=== PATIENT | female | born 1960 | race Caucasian/White ===

== ENCOUNTER → 2019-09-24 15:13 | Outpatient (CLI) | payer OTHER, SELFPAY ==
--- NOTE | ~2019-09-24 | MM_ITS ---
EXAMINATION: MM screening [facility] BI w ivy HISTORY: Screening mammogram TECHNIQUE: Craniocaudal and mediolateral oblique 3-D tomosynthesis images were obtained and synthetic 2-D images were generated. CAD analysis was submitted and interpreted. COMPARISON: 05/05/2018, 04/29/2017, 03/12/2016 BREAST PARENCHYMAL COMPOSITION: The breasts are heterogeneously dense, which may obscure small masses . FINDINGS: There is no evidence of suspicious mass, calcification, or architectural distortion to sugg est malignancy in either breast. There has been no suspicious interval change. IMPRESSION: 1. No mammographic evidence of malignancy. 2. Recommend routine screening mammography in one year. BI-RADS Category 1: Negative Reviewed, dictated and finalized at location A.
== END ==
PROVIDERS: PCP Family Medicine; Visit Provider Family Medicine
DX: Z12.31 Encounter for screening mammogram for malignant neoplasm of breast (principal)
CPT/HCPCS: 77063; 77067

== ENCOUNTER → 2020-11-03 18:07 | Outpatient (CLI) | payer OTHER, SELFPAY ==
--- NOTE | ~2020-11-03 | DEXA_ITS ---
Bone Density Report Name: Bhumika Jurado Age: 60 Sex: Female Ethnicity: White Date of : 1960 Indication: postmenopausal osteoporosis; Referring Provider: Qiana Cano Study: Bone densitometry was performed. Exam Date: November 03, 2020 Accession number: [id number] Bone Density: Region BMD T-score Z-score Classification AP Spine (L1-L4) 0.793 -2.3 -0.8 Osteopenia Femoral Neck (Left) 0.531 -2.9 -1.5 Osteoporosis Total Hip (Left) 0.644 -2.4 -1.4 Osteopenia Femoral Neck (Right) 0.539 -2.8 -1.4 Osteoporosis Total Hip (Right) 0.652 -2.4 -1.3 Osteopenia Total Hip Mean 0.648 -2.4 -1.4 Osteopenia World Health Organization criteria for BMD impression classify patients as: Normal (T-score at or above -1.0), Osteopenia (T-score between -1.0 and -2.5), or Osteoporosis (T-score at or below -2.5). 10-year Fracture Risk: FRAX not reported because: Some T-score for Spine Total or Hip Total or Femoral Neck at or below -2.5 Previous Exams: Region Exam Age BMD T-score BMD Change BMD Change Date g/cm2 vs Baseline vs Previous AP Spine(L1-L4) 11/03/2020 60 0.793 -2.3 -0.119* -0.020 03/12/2016 55 0.813 -2.1 -0.099* -0.015 03/01/2014 53 0.828 -2.0 -0.084* -0.066* 12/07/2010 50 0.894 -1.4 -0.017 -0.017 12/01/2009 49 0.912 -1.2 Total Hip(Left) 11/03/2020 60 0.644 -2.4 -0.028* 0.035* 03/12/2016 55 0.608 -2.7 -0.064* -0.065* 03/01/2014 53 0.673 -2.2 0.001 -0.009 12/07/2010 50 0.682 -2.1 0.011 0.011 12/01/2009 49 0.672 -2.2 Total Hip(Right) 11/03/2020 60 0.652 -2.4 -0.038* 0.001 03/12/2016 55 0.651 -2.4 -0.038* -0.027 03/01/2014 53 0.678 -2.2 -0.011 0.008 12/07/2010 50 0.670 -2.2 -0.020 -0.020 12/01/2009 49 0.689 -2.1 *Denotes significance at 95% confidence level, LSC for AP Spine = 0.022 g/cm2, LSC for Total Hip = 0.027 g/cm2 Clinical Information Provided by Patient: Has used the following medications: Vitamin D, Calcium, MTV Patient maximum height was 62.5 Menopause Age: 50 Drinks caffeinated beverages Onset of menses at age 12 Number of children 2 Impression: The patient has osteoporosis, based on the Left Femoral Neck T-score. No significant bone loss was observed. Discussion:
== END ==
PROVIDERS: PCP Family Medicine; Visit Provider Advanced Practice Midwife
DX: Z78.0 Asymptomatic menopausal state (principal); M85.88 Other specified disorders of bone density and structure, other site; M81.0 Age-related osteoporosis without current pathological fracture; M85.852 Other specified disorders of bone density and structure, left thigh; M85.851 Other specified disorders of bone density and structure, right thigh
CPT/HCPCS: 77080

== ENCOUNTER → 2020-11-21 17:48 | Outpatient (CLI) | payer OTHER, SELFPAY ==
--- NOTE | ~2020-11-21 | MM_ITS ---
EXAMINATION: MM screening [facility] BI w ivy HISTORY: Screening mammogram TECHNIQUE: Craniocaudal and mediolateral oblique 3-D tomosynthesis images were obtained and synthetic 2-D images were generated. Bilateral rotated lateral cc views. CAD analysis was submitted and interp reted. COMPARISON: 09/24/2019, , bilateral digital screening mammogram examinations BREAST PARENCHYMAL COMPOSITION: The breasts are heterogeneously dense, which may obscure small masses . FINDINGS: There is no evidence of suspicious mass, calcification, or architectural distortion to sugg est malignancy in either breast. There has been no suspicious interval change. IMPRESSION: 1. No mammographic evidence of malignancy. 2. Recommend routine screening mammography in one year. BI-RADS Category 1: Negative Reviewed, dictated and finalized at location A.
== END ==
PROVIDERS: PCP Family Medicine; Visit Provider Advanced Practice Midwife
DX: Z12.31 Encounter for screening mammogram for malignant neoplasm of breast (principal)
CPT/HCPCS: 77063; 77067

== ENCOUNTER → 2021-12-17 15:01 | Outpatient (CLI) | payer OTHER, SELFPAY ==
--- NOTE | ~2021-12-17 | MM_ITS ---
EXAMINATION: MM screening [facility] BI w ivy HISTORY: Screening mammogram TECHNIQUE: Craniocaudal and mediolateral oblique 3-D tomosynthesis images were obtained and synthetic 2-D images were generated. CAD analysis was submitted and interpreted. COMPARISON: 11/21/2020, 09/24/2019, 05/05/2018 BREAST PARENCHYMAL COMPOSITION: The breasts are heterogeneously dense, which may obscure small masses . FINDINGS: There is no suspicious mass, calcification, or architectural distortion to suggest malignan cy in either breast. There has been no suspicious interval change. IMPRESSION: 1. No mammographic evidence of malignancy. 2. Recommend routine screening mammography in one year. BI-RADS Category 1: Negative Reviewed, dictated and finalized at location A.
== END ==
PROVIDERS: PCP Family Medicine; Visit Provider Nurse Practitioner
DX: Z12.31 Encounter for screening mammogram for malignant neoplasm of breast (principal)
CPT/HCPCS: 77063; 77067

== ENCOUNTER 2022-05-25 14:13 | Emergency (ER) | payer OTHER, SELFPAY ==
--- NOTE | 2022-05-25 14:23 | ED.URI ---
HPI - URI/Sore Throat General Chief Complaint: Upper Respiratory Infection Stated Complaint: sore throat/ear pain Time Seen by Provider: 05/25/22 14:23 Source: patient Mode of arrival: ambulatory Limitations: no limitations History of Present Illness HPI Narrative: 61-year-old female presents with complaint of postnasal drainage, sore throat, bilateral ear pain for 1 week. Reports ears are popping, muffled hearing. Is taking Zyrtec and Flonase. States she is taking Tylenol to treat sore throat and is no longer helping. Also reports body aches, fatigue. Afebrile. No coughing. All systems reviewed and negative except as noted above. Related Data Home Medications Medication Instructions Recorded Confirmed ibandronate 150 mg tablet (Boniva) 150 mg PO MONTHLY 12/05/21 05/25/22 Allergies Allergy/AdvReac Type Severity Reaction Status Date / Time amoxicillin AdvReac Intermediate Diarrhea Verified 05/25/22 14:36 Review of Systems Review of Systems: CONSTITUTIONAL: Denies fever, chills, or sweats. EYES: Denies visual changes, redness, or discharge. ENT: Denies rhinorrhea, congestio. Reports sore throat and bilateral ear pain. CARDIOVASCULAR: Denies chest pain, palpitations, or edema. RESPIRATORY: Denies cough or dyspnea. GASTROINTESTINAL: Denies abdominal pain, nausea, vomiting, or diarrhea. GENITOURINARY: Denies dysuria or hematuria. SKIN: Denies rash or itching. MUSCULOSKELETAL: Denies back pain, joint pain, or myalgia. NEUROLOGIC: Denies headache, numbness, or weakness. PSYCHIATRIC: Denies anxiety or depression. All other systems reviewed are negative, except as documented in HPI. [facility] Past Medical History Medical History (Updated 05/25/22 @ 14:47 by Lucila Acosta NP) BCC (basal cell carcinoma of skin) Osteoporosis Family History Family History Father Hypertension Family history of diabetes mellitus in first degree relative Mother Family history of diabetes mellitus in first degree relative Sibling Family history of diabetes mellitus in first degree relative Social History Social History Social History: Smoking status: Never smoker Second hand tobacco smoke exposure: No Alcohol intake: never Substance use: never Substance use type: does not use Living arrangements: with family Occupation/Education: occupation Gender identity (if verbalized by the patient): Female Sexual Orientation (if Verbalized by the Patient): Straight or Heterosexual Comments At time of signature, agree with nursing past medical, surgical, social and family history. There is no relevant family history pertinent to the presenting complaint. Exam Narrative: GENERAL: This is a well-nourished, well-developed patient, in no apparent distress. HEAD: normocephalic, atraumatic. EYES: PERRL. Sclera clear/white. Vision is grossly intact. EARS: External ears normal, auditory canals clear and without drainage, Fluid, bubbles, erythema, bulging to bilateral TMs. No perforation. NOSE: External nose normal with no obvious nasal discharge, nares without redness, no rhinorrhea. THROAT: Mucous membranes moist, Erythema with postnasal drainage. NECK: Neck supple, non-tender without lymphadenopathy, masses or thyromegaly. CARDIOVASCULAR: Regular rate and rhythm without murmurs, gallops, or rubs. RESPIRATORY: Clear to auscultation. Breath sounds equal bilaterally. No wheezes, rales, or rhonchi. SKIN: warm, Dry, intact with no suspicious lesions or rash, good texture and turgor. NEURO: awake, alert, and oriented to person, place and time. There were no obvious focal neurologic abnormalities. EXTREMITIES: No joint tenderness, effusion, or edema noted. Course Course Level of Care: Express Care Visit Vital Signs Vital signs: Vital Signs Temperature 37.0 C 05/25/22 14:25 Pulse Rate 97
[2022-05-25 14:25] VITALS: BP 153/65; PULSE 97; RESP 16; TEMP 37; O2SAT 99
== END 2022-05-25 14:54 | disposition home or self-care (01) ==
PROVIDERS: Emergency Provider Nurse Practitioner Family; PCP Family Medicine
DX: H65.03 Acute serous otitis media, bilateral (principal); J02.9 Acute pharyngitis, unspecified; Z85.828 Personal history of other malignant neoplasm of skin; M81.0 Age-related osteoporosis without current pathological fracture
CPT/HCPCS: 87081; 87880; 99213; 99214; G0463

== ENCOUNTER 2023-01-14 07:43 | Outpatient (CLI) | payer BC, OTHER, SELFPAY ==
--- NOTE | ~2023-01-14 | NM_ITS ---
EXAMINATION: NM thyroid scan w uptake DATE: 01/15/2023 08:24 INDICATION: Thyrotoxicosis, unspecified without thyrotoxic crisis. COMPARISON: None. TECHNIQUE: 0.493 mCi I-123 was administered orally. Scintigraphic images of the thyroid gland were o btained at 24 hours. Thyroid uptake was calculated by the technologist. FINDINGS: The thyroid uptake is 18% (normal 10-30%), with the right lobe measuring 12% uptake and the left 6%. There is heterogeneous activity of the thyroid. IMPRESSION: 1. Normal 24-hour iodine uptake. 2. Heterogeneous thyroid activity, likely a multinodular goiter. Reviewed, dictated and finalized at location E.
== END 2023-01-14 07:44 | disposition home or self-care (01) ==
PROVIDERS: PCP Family Medicine; Visit Provider Family Medicine
DX: E05.90 Thyrotoxicosis, unspecified without thyrotoxic crisis or storm (principal)
CPT/HCPCS: 78014; A9516

== ENCOUNTER 2023-02-05 12:12 | Outpatient (CLI) | payer BC, SELFPAY ==
--- NOTE | ~2023-02-05 | MM_ITS ---
EXAMINATION: MM screening [facility] BI w ivy HISTORY: Screening mammogram TECHNIQUE: Craniocaudal and mediolateral oblique 3-D tomosynthesis images were obtained and synthetic 2-D images were generated. Bilateral rotated lateral CC views. CAD analysis was submitted and interp reted. COMPARISON: 12/17/2021, 11/21/2020, 09/24/2019 bilateral screening mammogram examinations BREAST PARENCHYMAL COMPOSITION: The breasts are heterogeneously dense, which may obscure small masses . FINDINGS: There is no evidence of suspicious mass, calcification, or architectural distortion to sugg est malignancy in either breast. There has been no suspicious interval change. IMPRESSION: 1. No mammographic evidence of malignancy. 2. Recommend routine screening mammography in one year. BI-RADS Category 1: Negative Reviewed, dictated and finalized at location A. CTOR LEARNING
== END 2023-02-05 12:13 ==
PROVIDERS: PCP Nurse Practitioner; Visit Provider Nurse Practitioner
DX: Z12.31 Encounter for screening mammogram for malignant neoplasm of breast (principal)
CPT/HCPCS: 77063; 77067

== ENCOUNTER 2023-03-12 14:27 | Outpatient (CLI) | payer BC, OTHER, SELFPAY ==
--- NOTE | ~2023-03-12 | DEXA_ITS ---
Bone Density Report Name: GWEN HARRIS Age: 62 Sex: Female Ethnicity: White Date of : 1960 Indication: postmenopausal; screening for osteoporosis; Referring Provider: FATUMA, SAUNDRA Murray Study: Bone densitometry was performed. Exam Date: March 12, 2023 Accession number: [id number] Bone Density: Region BMD T-score Z-score Classification AP Spine(L1-L4) 0.789 -2.3 -0.6 Osteopenia Femoral Neck (Left) 0.538 -2.8 -1.3 Osteoporosis Total Hip (Left) 0.716 -1.9 -0.7 Osteopenia Femoral Neck (Right) 0.570 -2.5 -1.0 Osteoporosis Total Hip (Right) 0.751 -1.6 -0.4 Osteopenia Femoral Neck Mean 0.554 -2.7 -1.2 Osteoporosis Total Hip Mean 0.734 -1.7 -0.5 Osteopenia World Health Organization criteria for BMD impression classify patients as: Normal (T-score at or above -1.0), Osteopenia (T-score between -1.0 and -2.5), or Osteoporosis (T-score at or below -2.5). 10-year Fracture Risk: FRAX not reported because: Some T-score for Spine Total or Hip Total or Femoral Neck at or below -2.5 Clinical Information Provided by Patient: Has used the following medications: Boniva (i.e. ibandronate), Vitamin D, Calcium Patient maximum height was 62 Menopause Age: 51 No regular weight bearing exercise Drinks caffeinated beverages Onset of menses at age 11 Number of children 2 Impression: The patient has osteoporosis, based on the Left Femoral Neck T-score. Discussion: INCREASED RISK OF FRACTURE. BONE DENSITY IS UNDESIRABLY LOW AT ONE OR MORE SKELETAL SITES, CONSISTENT WITH POSTMENOPAUSAL OSTEOPOROSIS. This patient's lowest T-score meets the World Health Organization's (WHO) criteria for osteoporosis at one or more sites (T-score -2.5 or below). In untreated patients, the risk of osteoporotic fracture increases approximately two-fold for each 1.0 SD decrease in T-score. Low bone density is not the only risk factor for fracture; also consider factors such as patient's age, frailty or poor health, risk of falling, risk of injury, previous osteoporotic fracture, family history of osteoporosis, cigarette smoking, low body weight, etc. Not everyone with low bone mineral density has osteoporosis; osteomalacia and other metabolic bone disorders should also be considered. Patients who have osteoporosis should be evaluated for specific diseases and conditions (secondary causes) that may cause or contribute to bone loss. The [place] Association [employer] Endocrinologists (AACE) and National Osteoporosis Foundation (NOF) recommend pharmacologic intervention for all postmenopausal women whose T-score is in this range. The patient should follow a healthful lifestyle (good nutrition with adequate calcium and vitamin D, and appropriate weight-bearing exercise). Follow-Up: Consider a repeat BMD and Vertebral Fracture Assessment (VFA) exam in 2 years or sooner if medically necessary, to reassess
== END 2023-03-12 14:28 | disposition home or self-care (01) ==
LOC: CHSIMG 14:28
PROVIDERS: PCP Family Medicine; Visit Provider Nurse Practitioner
DX: Z13.820 Encounter for screening for osteoporosis (principal); M81.0 Age-related osteoporosis without current pathological fracture; Z78.0 Asymptomatic menopausal state
CPT/HCPCS: 77080

== ENCOUNTER 2023-07-09 09:27 | Outpatient (CLI) | payer BC, OTHER, SELFPAY ==
--- NOTE | ~2023-07-09 | US_ITS ---
EXAMINATION: US thyroid DATE: 07/09/2023 09:54 INDICATION: Subclinical hyperthyroidism. TECHNIQUE: Multiple ultrasound images of the thyroid were obtained. COMPARISON: None. FINDINGS: The right thyroid lobe measures 7.7 x 4.2 x 4.1 cm. The left thyroid lobe measures 4.7 x 1.7 x 1.4 c m. In the right thyroid lobe, there is a 5.0 cm solid, isoechoic, wider than tall nodule with ill-de fined margin without echogenic foci (TI-RADS TR3). In the left thyroid lobe, there is a 3 mm nodule. In the left thyroid lobe, there is a 7 mm solid, hypoechoic, [id number] nodule with smooth lakesha n without echogenic foci (TR4). IMPRESSION: 1. Thyroid nodules. Ultrasound-guided fine-needle aspiration of the 5.0 cm right thyroid nodule is re commended. Reviewed, dictated and finalized at location E. IMPRESSION: 1. Thyroid nodules. Ultrasound-guided fine-needle aspiration of the 5.0 cm righ t thyroid nodule is recommended.
== END 2023-07-09 09:28 ==
LOC: MICIMG 09:28
PROVIDERS: PCP Family Medicine; Visit Provider Internal Medicine
DX: E05.80 Other thyrotoxicosis without thyrotoxic crisis or storm (principal)
CPT/HCPCS: 76536

== ENCOUNTER 2023-08-07 07:05 | Outpatient (CLI) | payer BC, OTHER, SELFPAY ==
--- NOTE | ~2023-08-07 | NM_ITS ---
EXAMINATION: NM thyroid scan w uptake DATE: 08/08/2023 07:53 INDICATION: Toxic thyroid nodule. COMPARISON: Thyroid ultrasound 07/09/2023, thyroid scintigraphy with 01/15/2023 TECHNIQUE: 0.496 mCi I-123 was administered orally. Scintigraphic images of the thyroid gland were o btained at 24 hours. Thyroid uptake was calculated by the technologist. FINDINGS: The thyroid uptake is 20% (normal 10-30%), with the right lobe measuring 17% uptake and the left 3%. There is relative increased activity in the 5.0 cm nodule in right thyroid lobe described by ultrasou nd with relative suppression of activity in the left thyroid lobe. IMPRESSION: 1. Normal 24-hour iodine uptake. 2. Relative increased activity in the 5.0 cm nodule in right thyroid lobe described by ultrasoundhoward benign. Reviewed, dictated and finalized at location A. IMPRESSION: 1. Normal 24-hour iodine uptake. 2. Relative increased activity in the 5.0 cm nodule in right thyroid lobe descr ibed by ultrasound, likely benign.
== END 2023-08-07 07:06 | disposition home or self-care (01) ==
PROVIDERS: PCP Family Medicine; Visit Provider Internal Medicine
DX: R74.8 Abnormal levels of other serum enzymes (principal); E05.90 Thyrotoxicosis, unspecified without thyrotoxic crisis or storm; R73.03 Prediabetes; M81.0 Age-related osteoporosis without current pathological fracture
CPT/HCPCS: 78014; A9516

== ENCOUNTER 2023-08-25 12:33 | Outpatient (CLI) | payer BC, OTHER, SELFPAY ==
--- NOTE | ~2023-08-25 | US_ITS ---
EXAMINATION: US FNA w image guidance DATE: 08/25/2023 13:29 INDICATION: 5 cm right thyroid nodule TECHNIQUE: A time-out was performed to verify the patient's name, date of , and procedure to be performed . The procedure and its benefits and risks were discussed with the patient. Risks specifically discus sed included bleeding and infection. The patient understood the risks and agreed to proceed. The neck was prepped and draped in the usual sterile manner. 3 mL 1% lidocaine was used for local anesthesia . 6 passes were made with a 25G needle into the lesion. Appropriate needle location was documented with continuous sonographic guidance. A sterile bandage was applied. There were no immediate compli cations. FINDINGS: Grayscale ultrasound images demonstrate biopsy needles advanced into a 5.5 cm solid heterogeneous iso echoic nodule right thyroid lobe. IMPRESSION: 1. Successful ultrasound-guided fine needle aspiration of 5.5 cm right thyroid nodule of concern. Reviewed, dictated and finalized at location A.
== END 2023-08-25 12:34 | disposition home or self-care (01) ==
LOC: ANHIMG 12:33
PROVIDERS: PCP Family Medicine; Visit Provider Internal Medicine
DX: R74.8 Abnormal levels of other serum enzymes (principal); E05.90 Thyrotoxicosis, unspecified without thyrotoxic crisis or storm; R73.03 Prediabetes; M81.0 Age-related osteoporosis without current pathological fracture
CPT/HCPCS: 10005; 88172; 88173; 88305; J1100; J2405; J2704

== ENCOUNTER 2024-02-09 07:50 | Outpatient (CLI) | payer BC, MEDICARE, SELFPAY ==
--- NOTE | ~2024-02-09 | MM_ITS ---
EXAMINATION: MM screening [facility] BI w ivy HISTORY: Screening TECHNIQUE: Craniocaudal and mediolateral oblique 3-D tomosynthesis images were obtained and synthetic 2-D images were generated. CAD analysis was submitted and interpreted. COMPARISON: Comparison to multiple prior studies sequentially, with oldest reviewed study dated 04/29. BREAST PARENCHYMAL COMPOSITION: Dense: The breasts are heterogeneously dense, which may obscure small masses FINDINGS: There is no evidence of suspicious mass, calcification, or architectural distortion to sugg est malignancy in either breast. There has been no suspicious interval change. IMPRESSION: 1. No mammographic evidence of malignancy. 2. Recommend routine screening mammography in one year. BI-RADS Category 1: Negative Reviewed, dictated and finalized at location B. LEASE INFORMATION CLERK
== END 2024-02-09 07:51 | disposition home or self-care (01) ==
LOC: CHSIMG 07:55
PROVIDERS: PCP Family Medicine; Visit Provider Nurse Practitioner
DX: Z12.31 Encounter for screening mammogram for malignant neoplasm of breast (principal)
CPT/HCPCS: 77063; 77067

== ENCOUNTER 2024-02-29 11:16 | Emergency (ER) | payer BC, MEDICARE, SELFPAY ==
--- NOTE | ~2024-02-29 | XR_ITS ---
Clinical Indication: Cough PA and lateral views of the chest: Comparison: None Findings: There is patchy consolidation right lung base and bilateral perihilar regions, and lesser e xtent left lung base.. Cardiomediastinal silhouette is within normal limits. Bones and soft tissues are unremarkable. Impression: Patchy bibasilar and perihilar consolidation, right worse than left. Findings discussed multifocal pn eumonia. Reviewed, dictated and finalized at location M. [employer] Impression: Patchy bibasilar and perihilar consolidation, right worse than left. Findings d iscussed multifocal pneumonia.
[2024-02-29 11:28] VITALS: BP 109/53; PULSE 84; RESP 16; TEMP 36.3; O2SAT 98
--- NOTE | 2024-02-29 11:40 | ED.URI ---
HPI - URI/Sore Throat General Chief Complaint: Upper Respiratory Infection Stated Complaint: right ear pain,eyes & mouth dry,cough,weak Time Seen by Provider: 02/29/24 11:35 Source: patient Mode of arrival: ambulatory Limitations: no limitations History of Present Illness HPI Narrative: Dixie is a 63-year-old female patient presenting to the clinic today with complaints of dry eyes and mouth, cough, feeling weak, right ear pain, and chest congestion x2 days. She has felt feverish, chills, and sweats. No chest pain or sob MD elicited complaint: cough, nasal congestion and other (Ear pain, weakness, dry mouth and eyes) Related Data Allergies Allergy/AdvReac Type Severity Reaction Status Date / Time amoxicillin AdvReac Intermediate Diarrhea Verified 02/29/24 11:27 Review of Systems Review of Systems: Pertinent positives per HPI. Patient denies any fever, chills, rash, headache, visual changes, dizziness, cough, shortness of breath, chest pain, palpitations, nausea, vomiting, diarrhea, constipation, abdominal pain, or any urinary issues. PMFSH Past Medical History Medical History BCC (basal cell carcinoma of skin) HTN (hypertension) Osteoporosis Viral pharyngoconjunctivitis Family History Family History Father Hypertension Family history of diabetes mellitus in first degree relative Mother Family history of diabetes mellitus in first degree relative Sibling Family history of diabetes mellitus in first degree relative Social History Social History Social History: Smoking status: Never smoker Second hand tobacco smoke exposure: No Alcohol intake: never Substance use: never Substance use type: does not use Living arrangements: with family Occupation/Education: occupation Gender identity (if verbalized by the patient): Female Sexual Orientation (if Verbalized by the Patient): Straight or Heterosexual Comments At the time of my signature, I reviewed and agree with the nursing past medical, surgical, social, and family history. There is no relevant family history pertinent to the patient complaint. Exam Narrative: General: Well-developed, well nourished, in no apparent distress Head: Normocephalic, atraumatic Eyes: Pupils equally round and reactive to light bilaterally, EOM intact, sclera and conjunctive clear, no discharge, lids normal Ears: TMs intact and congested, ear canals clear, no drainage, grossly hearing normal. Nose: Nares patent, clear discharge, no inflammation, no sinus tenderness. Mouth: Oral pharynx without lesions or masses, good dentition, MMM. Neck: Supple, trachea midline, no enlargement of anterior or posterior cervical nodes, no thyroid masses or goiter palpable. Cardio: Regular rate and rhythm, s1 and s2 normal, no murmur appreciated. Resp: Right mid and lower lobe crackles, no rhonchi, wheezing or rubs Course Course Emergency Course: Portions of this record may have been created with voice recognition software. Level of Care: Express Care Visit Vital Signs Vital signs: Vital Signs Temperature 36.3 C L 02/29/24 11:28 Pulse Rate 84 02/29/24 11:28 Respiratory Rate 16 02/29/24 11:28 Blood Pressure 109/53 L 02/29/24 11:28 Pulse Oximetry 98 02/29/24 11:28 Oxygen Delivery Room Air 02/29/24 11:28 Temperature 36.3 C L 02/29/24 11:28 Pulse Rate 84 02/29/24 11:28 Respiratory Rate 16 02/29/24 11:28 Blood Pressure 109/53 L 02/29/24 11:28 Pulse Oximetry 98 02/29/24 11:28 Oxygen Delivery Room Air 02/29/24 11:28 Vital signs reviewed MDM - URI/Sore Throat MDM Narrative Medical decision making narrative: At the time of visit patient is resting comfortably on the exam table. Patient appears to be nontoxic. Labs: COVID and influenza testing was performed and negative in the clinic today. Diagnostics: Chest x-ray shows multifocal pneumonia Plan: Patient has multifocal pneumonia. Patient is able to speak in full sentences without gasping for breath. Denies any feeling of shortness of breath and her oxygen saturations 98% on room air. I feel patient is appropriate for outpatient pneumonia treatment. Prescription for albuterol inhaler, azithromycin,and cefpodoxime was sent to the pharmacy. Incentive spirometer was given to patient. Supportive measures were discussed with the patient and they voiced understanding discharge instructions and agrees to treatment plan. Return precautions reviewed Differential Diagnosis Differential diagnosis: Likely upper respiratory infection, otitis media, sinusitis, viral infection, bronchitis, influenza, pharyngitis and other (COVID, pneumonia) Lab Data Labs: Lab Results 02/29/24 Range/Units 12:05 POC Influenza A Ag Negative (Negative) POC Influenza B Ag Negative (Negative) POC SARS CoV-2 Ag Negative (Negative) Imaging Data Radiologist's impression: ITS Impressions Chest X-Ray 02/29/24 12:07 Impression: Patchy bibasilar and perihilar consolidation, right worse than left. Findings discussed multifocal pneumonia. Discharge Plan Discharge Clinical Impression: Pneumonia Qualifiers: Pneumonia type: due to unspecified organism Laterality: bilateral Lung location: unspecified part of lung Qualified Code(s): J18.9 - Pneumonia, unspecified organism Patient Disposition: Home, Self-Care Condition: Stable Instructions: Antibiotic Form, How to Use an Incentive Spirometer (ED), Pneumonia (ED) Additional Instructions: COVID and influenza testing was negative in the clinic today. Chest x-ray shows a patchy bibasilar and perihilar consolidation right worse than left findings of multifocal pneumonia Take prescription medications only as prescribed-albuterol inhaler, azithromycin,and cefpodoxime Use incentive spirometer every 2-4 hours Increase fluids and stay well hydrated Tylenol/motrin for pain/fever Flonase and OTC antihistamines as directed Vicks vapor rub to open sinuses Sinus rinses for congestion Cepacol spray, cough drops, throat lozenges, warm tea with honey/lemon, gargle salt water to soothe throat BRAT diet for diarrhea Clear liquids x 24 hours then advance as tolerated for nausea/vomiting Go to the ED if you develop a worsening in your condition- high fever not controlled by Tylenol or Motrin, dehydration, weakness, lethargy, shortness of breath, or chest pain. Follow up with your PCP in 3-5 days if symptoms persist. Patient Language: Filipino Prescriptions: New azithromycin 250 mg tablet See Rx Instructions .ROUTE .COMPLEX Qty: 6 0RF Rx Instructions: For 250 mg dose pack: take 500 mg today (day 1), then 250 mg for 4 days (days 2-5) albuterol sulfate 90 mcg/actuation HFA aerosol inhaler 2 puff inhalation Q4-6H PRN (Reason: shortness of breath or wheezing) 30 Days Qty: 8.5 0RF cefpodoxime 200 mg tablet 200 mg PO BID 7 Days Qty: 14 0RF Rx Instructions: must administer with a meal/food No Action lisinopril-hydrochlorothiazide 10-12.5 mg tablet 1 tablet PO DAILY Qty: 90 2RF Follow-up/Referrals: [facility] Bart[facility] MD [Primary Care Provider] - Time of Disposition: 12:14 Quality NIHSS Nursing Documentation ED NIHSS nursing documentation: reviewed/agree
[2024-02-29 12:07] LABS: EDCOVIDSCREEN Negative (Negative)
[2024-02-29 12:08] LABS: EDINFLUASCREEN Negative (Negative); EDINFLUBSCREEN Negative (Negative)
== END 2024-02-29 12:25 | disposition home or self-care (01) ==
PROVIDERS: Emergency Provider Nurse Practitioner Family; PCP Family Medicine
DX: J18.9 Pneumonia, unspecified organism (principal); Z20.822 Contact with and (suspected) exposure to COVID-19; I10 Essential (primary) hypertension; M81.0 Age-related osteoporosis without current pathological fracture; Z85.828 Personal history of other malignant neoplasm of skin
CPT/HCPCS: 71046; 87426; 87804; 99213; G0463

== ENCOUNTER 2024-06-02 13:01 | Outpatient (CLI) | payer MEDICARE, BC, SELFPAY ==
--- NOTE | ~2024-06-02 | US_ITS ---
EXAMINATION: US FNA w image guidance DATE: 06/02/2024 13:55 INDICATION: TI-RADS 4 nodule at the thyroid isthmus TECHNIQUE: A time-out was performed to verify the patient's name, date of , and procedure to be performed . The procedure and its benefits and risks were discussed with the patient. Risks specifically discus sed included bleeding and infection. The patient understood the risks and agreed to proceed. The neck was prepped and draped in the usual sterile manner. 3 mL 1% lidocaine was used for local anesthesia . 6 passes were made with a 25G needle into the lesion. Appropriate needle location was documented with continuous sonographic guidance. A sterile bandage was applied. There were no immediate compli cations. FINDINGS: Grayscale ultrasound images demonstrate biopsy needles advanced into the 1.3 cm solid hypoechoic nodu le of concern at the thyroid isthmus. IMPRESSION: 1. Successful ultrasound-guided fine needle aspiration of a 1.3 cm nodule of concern at the thyroid isthmus. Reviewed, dictated and finalized at location A. IMPRESSION: 1. Successful ultrasound-guided fine needle aspiration of a 1.3 cm nodule of c oncern at the thyroid isthmus.
--- OUTSIDE RECORDS SUMMARY | 2024-06-02 14:26 | XMS_ITS | Data Portability ---
Author Organization [facility] Address [address] [place] [address] [place] [address] Care Team Providers Care Housecleaner Floor Name Role Phone ROBERT CARY Primary Care Provider [phone] Assessment Encounter Date Assessment Date Assessment LastModified by Organization Details LastModified Time 10/11/2021 10/11/2021 Annual gynecological exam performed. Patient will come back in a year unless there are new symptoms. [email or web address] Not available 10/11/2021 09:41:57 10/15/2022 10/15/2022 Annual gynecological exam performed. Patient will come back in a year unless there are new symptoms. [email or web address] Not available 10/15/2022 09:54:49 10/30/2023 10/30/2023 Annual gynecological exam performed. Patient will come back in a year unless there are new symptoms. [email or web address] Not available 10/30/2023 09:35:05 Plan of Treatment Reminders Order Date Submit Date Provider Last Modified By Organization Details Last Modified Time Details Appointments None recorded. Lab None recorded. Referral None recorded. Procedures None recorded. Surgeries None recorded. Imaging MAMMO, screening, digital, bilateral 2023 024 [facility], [address], [place], [address], 08:58:26 DEXA, axial skeleton + vertebral fracture assessment 2022 023 [facility], [address] [place], [address], 3 09:39:43 MAMMO, screening, digital, bilateral 2022 023 [facility], [address], [place], [address], 3 11:19:39 MAMMO, screening, bilateral 2021 022 [facility], [address], [place], [address], 2 12:10:31 bone density 2020 021 [facility], [address], [facility] [address], [place], [address], 17:21:43 Medication Orders None recorded. Patient TargetsNo targets recorded. Patient InstructionsNo instructions recorded. Reason for Referral None Reported. Results Created Date Observation Date Name Description Value Unit Range Abnormal Flag Note LastModifiedBy Organization Detail LastModifiedTime 07/07/19 21 07/06/2020 pap, IG Pap test SEE RESULT S BELOW CASE REPOR T: Cytol ogy Gynec ologi marc Repor t Case: [id number] Autho dexter riley Provi saskia: Qiana Floyd CNM Colle cted: 07/06 1024 Order ing Locat ion: [place] Patho logy Recei jaime: 07/07 0846 First Scree n: Jesu Narayanan , CT Speci men: Scree corinne Pap - Image d, Cervi x STATE MENT OF ADEQU ACY: Satis facto ry for evalu ation Trans forma tion zone compo nent prese nt FINAL DIAGN OSIS: Negat elvia for Intra epith elial Lesluz maria n or Jagdish godwin Elect karen tipton royal d by Jesu Narayanan CT on 2020 at 11:19 AM ----- ----- ----- ----- ----- ----- ----- ----- ----- ----- ----- ----- ----- ----- ----- ----- ----- ---- HPV RESUL TS: HPV mRNA E6/E7 : No HPV mRNA Detec amara NOTE: This high risk HPV mRNA assay detec ts fourt een high- risk HPV types (16, 18, 31, 33, 35, 39, 45, 51, 52, 56, 58, 59, 66, 68) witho ut diffe renti ation . CHART ABLE COMME NT: Note: This speci men was revie wed by a Cytot echno logis t and/o r Patho logis t (as indic ated in this repor t) after evalu ation using the Thinp rep Imagi ng Syste m. CLINI MARC INFOR MATIO N: Menst rual Statu s: LMP (if appli cable ): Clini marc Histo ry/Pr eviou s Pap: Type of Neopl parminder (if appli cable ): Other Histo ry: Hormo teri (if appli cable ): PAP EDUCA AUDRA L NOTE: The Pap Test is a scree corinne test with an inher ent false negat elvia rate. Liqui d-bas e sampl ing may decre ase, but will not elimi sherman, false negat elvia resul ts. A negat elvia resul t does not precl ude the prese nce and/o r devel opmen t of disea se, since the prese nce of abnor mal cells in the sampl e depen ds on the locat ion of the lesio n and sampl ing techn ique. Pelon nued regul ar scree corinne is the best metho d of cance r preve ntion . If repor amara cytol ogic findi ng do not corre late with physi marc and/o r histo rical findi ngs, furth er inves tigat ion is recom julio césar d, as clini daryn mott nted. Not Available [facility] (Lab) [address], [place], [address], 07/09/2020 12:21:45 12/22/19 21 12/21/2020 CBC W/DIF F WBC 6.6 10'3/ uL 3.6-10 .2 Not Available [facility] (Lab) [address] [facility], [place], [address], 12/22/2020 04:30:25 12/22/19 21 12/21/2020 CBC W/DIF F RBC 4.30 10'6/ uL (based on docume nted legal sex) 4.10-5 .30 Not Available [facility] (Lab) [address] [facility], [place], [address], 12/22/2020 04:30:25 12/22/19 21 12/21/2020 CBC W/DIF F HGB 12.7 g/dL (based on docume nted legal sex) 11.9-1 5.8 Not Available [facility] (Lab) [address] [facility], [place], [address], 12/22/2020 04:30:25 12/22/19 21 12/21/2020 CBC W/DIF F HCT 41.3 % (based on docume nted legal sex) 37.4-4 8.3 Not Available [facility] (Lab) [address] [facility], [place], [address], 12/22/2020 04:30:25 12/22/19 21 12/21/2020 CBC W/DIF F MCV 96.0 fL 82.0-9 9.0 Not Available [facility] (Lab) [address] [facility], [place], [address], 12/22/2020 04:30:25 12/22/19 21 12/21/2020 CBC W/DIF F MCH 30.0 pg 27.0-3 3.0 Not Available [facility] ([facility]) [address] [facility], [place], [address], 12/22/2020 04:30:25 12/22/19 21 12/21/2020 CBC W/DIF F MCHC 31.0 g/dL 32.0-3 6.0 low Not Available [facility] ([facility]) [address] [facility], [place], [address], 12/22/2020 04:30:25 12/22/19 21 12/21/2020 CBC W/DIF F RDW 14.0 % 11.0-1 5.0 Not Available [facility] ([facility]) [address] [facility], [place], [address], 12/22/2020 04:30:25 12/22/19 21 12/21/2020 CBC W/DIF F plt 341 10'3/ uL 150-45 0 Not Available [facility] ([facility]) [address] [facility], [place], [address], 12/22/2020 04:30:25 12/22/19 21 12/21/2020 CBC W/DIF F MPV 11.4 fL 9.8-12 .7 Not Available [facility] ([facility]) [address] [facility], [place], [address], 12/22/2020 04:30:25 12/22/19 21 12/21/2020 CBC W/DIF F NRBC's 0.00 % 0 Not Available [facility] ([facility]) [address] [facility], [place], [address], 12/22/2020 04:30:25 12/22/19 21 12/21/2020 CBC W/DIF F absolute NRBCs 0.0 10'3/ uL 0 Not Available [facility] ([facility]) [address] [facility], [place], [address], 12/22/2020 04:30:25 12/22/19 21 12/21/2020 CBC W/DIF F neutrophils 59.0 % 37.0-7 2.0 Not Available [facility] ([facility]) [address] [facility], [place], [address], 12/22/2020 04:30:25 12/22/19 21 12/21/2020 CBC W/DIF F lymphocytes 31.0 % 16.0-4 8.0 Not Available [facility] ([facility]) [address] [facility], [place], [address], 12/22/2020 04:30:25 12/22/19 21 12/21/2020 CBC W/DIF F monocytes 7.0 % 4.0-14 .0 Not Available [facility] ([facility]) [address] [facility], [place], [address], 12/22/2020 04:30:25 12/22/19 21 12/21/2020 CBC W/DIF F eosinophils 2.0 % 0.0-9. 0 Not Available [facility] ([facility]) [address] [facility], [place], [address], 12/22/2020 04:30:25 12/22/19 21 12/21/2020 CBC W/DIF F basophils 1.0 % 0.0-2. 0 Not Available [facility] ([facility]) [address] [facility], [place], [address], 12/22/2020 04:30:25 12/22/19 21 12/21/2020 CBC W/DIF F immature granulocytes 0.0 % no define d refere nce range Not Available [facility] ([facility]) [address] [facility], [place], [address], 12/22/2020 04:30:25 12/22/19 21 12/21/2020 CBC W/DIF F absolute neutrophils 4.0 10'3/ uL 1.1-6. 0 Not Available [facility] ([facility]) [address] [facility], [place], [address], 12/22/2020 04:30:25 12/22/19 21 12/21/2020 CBC W/DIF F absolute lymphocytes 2.0 10'3/ uL 0.7-3. 4 Not Available [facility] (Lab) [address] [place], [address], 12/22/2020 04:30:25 12/22/19 21 12/21/2020 CBC W/DIF F absolute monocytes 0.5 10'3/ uL 0.3-1. 0 Not Available [facility] ([facility]) [address] [facility], [place], [address], 12/22/2020 04:30:25 12/22/19 21 12/21/2020 CBC W/DIF F absolute eosinophils 0.1 10'3/ uL 0.0-0. 6 Not Available [facility] ([facility]) [address] [facility], [place], [address], 12/22/2020 04:30:25 12/22/19 21 12/21/2020 CBC W/DIF F absolute basophils 0.0 10'3/ uL 0.0-0. 1 Not Available [facility] ([facility]) [address] [facility], [place], [address], 12/22/2020 04:30:25 12/22/19 21 12/21/2020 CBC W/DIF F absolute immature granulocytes 0.00 10'3/ uL 0.00-0 .10 2020 1:34 AM: P indic ates parti al resul ts on a panel have been relea sed. Addit ional resul ts will follo w. 2020 1:35 AM: This resul t has been final verif ied. No addit ional or lui ed resul ts are expec amara. Not Available [facility] (Lab) [address] [facility], [place], [address], 12/22/2020 04:30:25 12/22/19 21 12/21/2020 TSH, REFLE X FREE T4 TSH 0.43 uIU/m L 0.30-5 .33 Not Available [facility] ([facility]) [address] [facility], [place], [address], 12/22/2020 04:30:25 12/22/19 21 12/21/2020 PHOSP HORUS phosphorus 3.0 mg/dL 2.5-5. 0 Not Available [facility] ([facility]) [address] [facility], [place], [address], 12/22/2020 04:30:25 12/22/19 21 12/21/2020 CMP(C OMPRE HENSI VE METAB OLIC PANEL ) sodium 141 mmol/ L 133-14 6 Not Available [facility] ([facility]) [address] [facility], [place], [address], 12/22/2020 04:30:26 12/22/19 21 12/21/2020 CMP(C OMPRE HENSI VE METAB OLIC PANEL ) potassium 3.9 mmol/ L 3.5-5. 1 Not Available [facility] ([facility]) [address] [facility], [place], [address], 12/22/2020 04:30:26 12/22/19 21 12/21/2020 CMP(C OMPRE HENSI VE METAB OLIC PANEL ) chloride 105 mmol/ L 98-107 Not Available [facility] (Lab) [address] [facility], [place], [address], 12/22/2020 04:30:26 12/22/19 21 12/21/2020 CMP(C OMPRE HENSI VE METAB OLIC PANEL ) carbon dioxide 30 mmol/ L 21-31 Not Available [facility] ([facility]) [address] [facility], [place], [address], 12/22/2020 04:30:26 12/22/19 21 12/21/2020 CMP(C OMPRE HENSI VE METAB OLIC PANEL ) anion gap 6 mmol/ L 4-13 Not Available [facility] ([facility]) [address] [facility], [place], [address], 12/22/2020 04:30:26 12/22/19 21 12/21/2020 CMP(C OMPRE HENSI VE METAB OLIC PANEL ) blood urea nitrogen 13 mg/dL 7-25 Not Available [facility] (Lab) [address] [facility], [place], [address], 12/22/2020 04:30:26 12/22/19 21 12/21/2020 CMP(C OMPRE HENSI VE METAB OLIC PANEL ) creatinine 0.55 mg/dL 0.60-1 .30 low Not Available [facility] (Lab) [address] [facility], [place], [address], 12/22/2020 04:30:26 12/22/19 21 12/21/2020 CMP(C OMPRE HENSI VE METAB OLIC PANEL ) GFR () 136 mL/mi n/1.7 3_m2 60-300 Not Available [facility] (Lab) [address] [facility], [place], [address], 12/22/2020 04:30:26 12/22/19 21 12/21/2020 CMP(C OMPRE HENSI VE METAB OLIC PANEL ) GFR (others) 112 mL/mi n/1.7 3_m2 60-300 Not Available [facility] (Lab) [address] [facility], [place], [address], 12/22/2020 04:30:26 12/22/19 21 12/21/2020 CMP(C OMPRE HENSI VE METAB OLIC PANEL ) calcium 9.8 mg/dL 8.3-10 .5 Not Available [facility] (Lab) [address] [facility], [place], [address], 12/22/2020 04:30:26 12/22/19 21 12/21/2020 CMP(C OMPRE HENSI VE METAB OLIC PANEL ) glucose 111 mg/dL 70-100 high Not Available [facility] (Lab) [address] [facility], [place], [address], 12/22/2020 04:30:26 12/22/19 21 12/21/2020 CMP(C OMPRE HENSI VE METAB OLIC PANEL ) protein, total 6.6 g/dL 6.4-8. 3 Not Available [facility] ([facility]) [address] [facility], [place], [address], 12/22/2020 04:30:26 12/22/19 21 12/21/2020 CMP(C OMPRE HENSI VE METAB OLIC PANEL ) albumin 4.1 g/dL 3.5-5. 0 Not Available [facility] ([facility]) [address] [facility], [place], [address], 12/22/2020 04:30:26 12/22/19 21 12/21/2020 CMP(C OMPRE HENSI VE METAB OLIC PANEL ) ALT 21 units /L 9-43 Not Available [facility] ([facility]) [address], [place], [address], 12/22/2020 04:30:26 12/22/19 21 12/21/2020 CMP(C OMPRE HENSI VE METAB OLIC PANEL ) alkaline phosphatase 107 units /L 34-104 high Not Available [facility] ([facility]) [address] [facility], [place], [address], 12/22/2020 04:30:26 12/22/19 21 12/21/2020 CMP(C OMPRE HENSI VE METAB OLIC PANEL ) AST 16 units /L 13-39 Not Available [facility] (Lab) [address] [facility], [place], [address], 12/22/2020 04:30:26 12/22/19 21 12/21/2020 CMP(C OMPRE HENSI VE METAB OLIC PANEL ) bilirubin, total 0.5 mg/dL 0.2-1. 2 GFR([place] n Amer[place] can) is repor amara as 21% great er than GFR(O ther) . The use of race in kidne y funct ion estim ating equat ions is no longe r recom julio césar d and may resul t in overe stima tion. In the near futur e an appro ach that disre hannahs race will be imple mente d. Not Available [facility] ([facility]) [address] [facility], [place], [address], 12/22/2020 04:30:26 12/22/19 21 12/21/2020 VITAM IN D, 25-OH (TOTA L D2/D3 ) vitamin D, 25-hydroxy, total 31.9 NG/mL 30-80 NOTE: Defic iency : <20 ng/mL Insuf ficie ncy: 20-29 ng/mL Optim um Level : 30-80 ng/mL Possi ble Toxic ity: >80 ng/mL Most patie nts with toxic ity have level s >150 ng/mL . Not Available [facility] (Lab) [address] [facility], [place], [address], 12/22/2020 04:30:26 10/16/19 23 10/15/2022 IMAGE GUIDE D PAP AND HPV REGAR DLESS image guided Pap, HPV regardless of Pap result SEE RESULT S BELOW CASE REPOR T: Cytol ogy Gynec ologi marc Repor t Case: [id number] Autho riitalon g Provi saskia: Clementina Cottrell, SAMAN Colle cted: 10/15 1128 Order ing Locat ion: [place] Patho logy Recei jaime: 10/16 0708 First Scree n: Kami Ramirez, CT Rescr een: Kristina Nice, CT Speci men: Scree corinne Pap - Image d, Cervi x STATE MENT OF ADEQU ACY: Satis facto ry for evalu ation Trans forma tion zone compo nent absen t The absen ce of an endoc ervic al compo nent was confi rmed by an addit ional scree ner. FINAL DIAGN OSIS: Negat elvia for Intra epith elial Geraldine lockhart or Jagdish godwin (NIL) . Elect karen paige d by Kristina Nice, CT on 023 at 5:49 PM ----- ----- ----- ----- ----- ----- ----- ----- ----- ----- ----- ----- ----- ----- ----- ----- ----- ---- HPV RESUL TS: HPV mRNA E6/E7 : No HPV mRNA Detec amara NOTE: This high risk HPV mRNA assay detec ts fourt een high- risk HPV types (16, 18, 31, 33, 35, 39, 45, 51, 52, 56, 58, 59, 66, 68) witho ut diffe renti ation . COMME NT: This speci men was revie wed by a Cytot echno logis t and/o r Patho logis t (as indic ated in this repor t) after evalu ation using the Thinp rep Imagi ng Syste m. CLINI MARC INFOR MATIO N: Menst rual Statu s: LMP (if appli cable ): Clini marc Histo ry/Pr eviou s Pap: Type of Neopl parminder (if appli cable ): Signi fican t Clini marc Findi ngs: Other Histo ry: Hormo teri (if appli cable ): PAP EDUCA AUDRA L NOTE: The Pap Test is a scree corinne test with an inher ent false negat elvia rate. Liqui d-bas ed sampl ing may decre ase, but will not elimi sherman, false negat elvia resul ts. A negat elvia resul t does not precl ude the prese nce and/o r devel opmen t of disea se, since the prese nce of abnor mal cells in the sampl e depen ds on the locat ion of the lesio n and sampl ing techn ique. Pelon nued regul ar scree corinne is the best metho d of cance r preve ntion . If repor amara cytol ogic findi ng do not corre late with physi marc and/o r histo rical findi ngs, furth er inves tigat ion is recom julio césar d, as clini daryn mott nted. Not Available [facility] (Lab) [address], [place], [address], 10/17/2022 08:16:52 10/30/19 24 10/30/2023 IMAGE GUIDE D PAP AND HPV REGAR DLESS image guided Pap, HPV regardless of Pap result SEE RESULT S BELOW CASE REPOR T: Cytol ogy Gynec ologi marc Repor t Case: [id number] Autho dexter riley Provi saskia: Adrien Vitale MD Colle cted: 10/29 1032 Order ing Locat ion: [place] Patho logy Recei jaime: 10/30 0744 First Scree n: Grisel Neal ret, CT Speci men: Mukul sun Pap - Image d, Cervi x STATE MENT OF ADEQU ACY: Satis facto ry for evalu ation Trans forma tion zone compo nent prese nt ----- ----- ----- ----- ----- ----- ----- ----- ----- ----- ----- ----- ----- ----- ----- ----- ----- ---- FINAL DIAGN OSIS: Negat elvia for Intra epith elial Geraldine lockhart or Jagdish godwin (NIL) . Elect karen tipton royal d by Grisel Neal ret, CT on 2023 at 11:32 AM ----- ----- ----- ----- ----- ----- ----- ----- ----- ----- ----- ----- ----- ----- ----- ----- ----- ---- HPV RESUL TS: HPV mRNA E6/E7 : No HPV mRNA Detec amara NOTE: This high risk HPV mRNA assay detec ts fourt een high- risk HPV types (16, 18, 31, 33, 35, 39, 45, 51, 52, 56, 58, 59, 66, 68) witho ut diffe renti ation . COMME NT: This speci men was revie wed by a Cytot echno logis t and/o r Patho logis t (as indic ated in this repor t) after evalu ation using the Thinp rep Imagi ng Syste m. CLINI MARC INFOR MATIO N: Menst rual Statu s: LMP (if appli cable ): Clini marc Histo ry/Pr eviou s Pap: Type of Neopl parminder (if appli cable ): Signi fican t Clini marc Findi ngs: Other Histo ry: Hormo teri (if appli cable ): PAP EDUCA AUDRA L NOTE: The Pap Test is a scree corinne test with an inher ent false negat elvia rate. Liqui d-bas ed sampl ing may decre ase, but will not elimi sherman, false negat elvia resul ts. A negat elvia resul t does not precl ude the prese nce and/o r devel opmen t of disea se, since the prese nce of abnor mal cells in the sampl e depen ds on the locat ion of the lesio n and sampl ing techn ique. Pelon nued regul ar scree corinne is the best metho d of cance r preve ntion . If repor amara cytol ogic findi ng do not corre late with physi marc and/o r histo rical findi ngs, furth er inves tigat ion is recom julio césar d, as clini daryn warra nted. Not Available [facility] (Lab) [address], [place], [address], 11/06/2023 12:37:19 11/07/19 21 11/03/2020 bone densi ty No observ ation record ed. [facility] [address], [place], [address], 12/11/2020 09:37:13 11/14/19 bone densi ty No observ ation record ed. [email or web address] [facility] [address], [place], [address], 01/04/2021 12:09:35 11/23/19 21 11/21/2020 imagi ng/di agnos tic resul t No observ ation record ed. JUAN C [facility] [address], [place], [address], 11/29/2020 10:35:48 12/19/19 22 12/17/2021 MAMMO , scree corinne, bilat eral No observ ation record ed. [facility] [address], [place], [address], 12/18/2021 16:16:10 02/06/20 23 02/05/2023 MAMMO , scree corinne, digit al, bilat eral No observ ation record ed. [facility] [address], [place], [address], 02/10/2023 13:49:54 03/14/20 23 03/12/2023 DEXA, axial skele ton + verte bral fract ure asses sment No observ ation record ed. [facility] [address] [place], [address], 03/18/2023 15:50:07 02/09/20 24 02/09/2024 MAMMO , scree corinne, digit al, bilat eral No observ ation record ed. [facility] [address] [place], [address], 02/10/2024 14:06:41 Result Notes None recorded. Problems Name Problem SNOMED Code Status Onset Date Resolution Date Notes Provider Name and Address Organization Details Recorded Time Screenin g for malignan t neoplasm of cervix Completed 201307/05/2020 Pap Smear;Pr actice ID: [id number] Lydia zaragoza [facility] 11:53:[address] Concept Completed 201707/05/2020 Encntr for cosmetician apprentice exam (general ) (routine ) w/o abn findings ;Practic e ID: [id number] Lydia zaragoza [facility] 11:53:31 Screenin g for malignan t neoplasm of rectum Completed 201707/05/2020 Encounte r for screenin g for malignan t neoplasm of rectum;P ractice ID: [id number] Lydia zaragoza [facility] 11:53:26 Sexually transmit amara infectio us disease [id number] Completed 201307/05/2020 SPECIAL SCREEN EXAM HPV;Prac nikita ID: 0001 Lydia zaragoza [facility] 11:53:28 Speciali zed medical examinat ion Completed 201307/05/2020 Routine gynecolo gical examinat ion;Prac nikita ID: 0001 Lydia Strattonan nik [facility] 11:53:32 Adult health examinat ion Completed 201307/05/2020 Routine general medical examinat ion at a [facility] ;Practic e ID: 0001 Lydia Strattonan nik [facility] 11:53:20 Microsco pic hematuri a [id number] Completed 201307/05/2020 HEMATURI A MICROSCO PIC;Prac nikita ID: 0001 Lydia zaragoza [facility] 11:53:21 Removal of intraute rine device Completed 201307/05/2020 REMOVAL OF IUD;Prac nikita ID: 0001 Lydia Strattonan nik [facility] 11:53:[address] Concept Completed 201507/05/2020 Encntr for general adult medical exam w/o abnormal findings ;Practic e ID: 0001 Lydia Strattonan nik [facility] 11:53:30 Screenin g for malignan t neoplasm of colon Completed 201007/05/2020 Special screenin g for malignan t neoplasm s, colon;Pr actice ID: [id number] Lydia zaragoza [facility] 11:53:25 Problem Notes None recorded. Procedures Surgical History Date Name Laterality Status Provider Name and Address Organization Details Recorded Time 024 Most Recent [facility] 09:35:38 023 Date of Last Mammogram completed Jeanne [facility] 10/30/2023 09:35:38 021 Date of Last Pap Smear completed Milly Joe [facility] 10/11/2021 09:30:31 020 completed Lydia Bansal [facility] 07/06/2020 09:34:28 020 completed Lydia Doran [facility] 07/06/2020 09:34:34 991 delivery completed Qiana Cano [facility] 07/06/2020 09:46:38 990 delivery completed Qiana Fonsecavikram [facility] 07/06/2020 09:46:15 cholecystectomy completed Qianaleo Cano I [facility] 07/06/2020 09:47:10 Imaging Results Imaging Date Name Status LastModified by Organiz ation Details LastModified Time 11/03/2020 bone density completed [email or web address] [facility] [address], [place], [address], 12/11/2020 09:37:13 11/13/2020 bone density completed [email or web address] [facility] [address], [place], [address], 01/04/2021 12:09:35 11/21/2020 imaging/diagnos tic result completed [facility] [address], [place], [address], 11/29/2020 10:35:48 12/17/2021 MAMMO, screening, bilateral completed [facility] [address], [place], [address], 12/18/2021 16:16:10 02/05/2023 MAMMO, screening, digital, bilateral completed [facility] [address], [place], [address], 02/10/2023 13:49:54 03/12/2023 DEXA, axial skeleton + vertebral fracture assessment completed [facility] [address] [place], [address], 03/18/2023 15:50:07 02/09/2024 MAMMO, screening, digital, bilateral completed [facility] [address] [place], [address], 02/10/2024 14:06:41 Procedure Notes None recorded. Medical Equipment None Reported. Allergies No known drug allergies Medications Name Sig Start Date Stop Date Status Note LastModified by Organization Details LastModified Time promethaz ine-DM 6.25 mg-15 mg/5 mL oral syrup 10/29 completed Not Available Not Available Not Available fluconazo le 150 mg tablet 10/29 completed Not Available Not Available Not Available prednison e 20 mg tablet 10/29 completed Not Available Not Available Not Available ciproflox acin 250 mg tablet TAKE 1 TABLET BY MOUTH EVERY 12 HOURS FOR 3 DAYS 10/15 completed Not Available Not Available Not Available amoxicill in 875 mg tablet TAKE 1 TABLET BY MOUTH EVERY 12 HOURS FOR 10 DAYS 10/15 completed Not Available Not Available Not Available Cipro 500 mg tablet take 1 tablet by oral route every 12 hours 07/05 completed Prescrib ed Elsewher e: No Locat ion: [facility] odify By: mary aminunter DateTime : 03/07/20 14 01:20:21 PM Not Available Not Available Not Available lisinopri l 10 mg tablet 10/15 completed Not Available Not Available Not Available lisinopri l 5 mg tablet TAKE 1 TABLET BY MOUTH DAILY 10/15 completed Not Available Not Available Not Available lisinopri l 10 mg-hydroc hlorothia zide 12.5 mg tablet active Not Available Not Available No t Available methylpre dnisolone 4 mg tablets in a dose pack FOLLOW PACKAGE DIRECTIO NS 10/15 completed Not Available Not Available Not Available Vitamin D2 1,250 mcg (50,000 unit) capsule take 1 capsule by oral route every week 07/06 completed Prescrib ed Elsewher e: No Locat ion: [facility]ify By: mary Ba ncounter DateTime : 02/10/20 14 09:15:49 AM Not Available Not Available Not Available multivita min capsule take 1 capsule by oral route every day 07/06 completed Prescrib ed Elsewher e: Yes Loca tion: [facility] By: carito trimble DateTime : 01/20/20 14 11:00:00 AM Not Available Not Available Not Available amoxicill in 875 mg-potass ium clavulana te 125 mg tablet 10/29 completed Not Available Not Available Not Available ibandrona te 150 mg tablet TAKE 1 TABLET BY MOUTH EVERY MONTH ON THE SAME DAY active Not Available Not Available No t Available Calcium 500 With D 500 mg-10 mcg (400 unit) tablet 07/06 completed Prescrib ed Elsewher e: Yes Loca tion: [facility] By: carito trimble DateTime : 01/20/20 14 11:00:00 AM Not Available Not Available Not Available cholecalc iferol (vitamin D3) 1,250 mcg (50,000 unit) capsule Take 1 capsule every week on the same day for 12 weeks. 10/15 completed Not Available Not Available Not Available Vitals Date Recorded Body height Body mass index (BMI) Body weight Systolic blood pressure Diastolic blood pressure Provider Name and Address Organization Details Last Updated DateTime 07/06/2020 165.1 cm 27.3 kg/m2 78613.15 g 137 mm[Hg] 80 mm[Hg] Lydia Bansal [facility] 1 09:33:56 Date Recorded Body height Body mass index (BMI) Body weight Systolic blood pressure Diastolic blood pressure Provider Name and Address Organization Details Last Updated DateTime 02/12/2021 165.1 cm 28.3 kg/m2 53416.7 g 130 mm[Hg] 70 mm[Hg] Lydia Bansal [facility] 1 18:09:13 Date Recorded Body height Body mass index (BMI) Body weight Systolic blood pressure Diastolic blood pressure Systolic blood pressure Diastolic blood pressure Provider Name and Address Organization Details Last Updated DateTime 2 165.1 cm 28.4 kg/m2 26726.5 8 g 155 mm[Hg] 79 mm[Hg] 150 mm[Hg] 74 mm[Hg] Milly zapien [facility] 2 10:02:23 Date Recorded Body height Body mass index (BMI) Body weight Systolic blood pressure Diastolic blood pressure Provider Name and Address Organization Details Last Updated DateTime 10/15/2022 165.1 cm 28.8 kg/m2 19670.48 g 124 mm[Hg] 72 mm[Hg] Milly Joe [facility] 3 09:55:08 Date Recorded Body height Body mass index (BMI) Body weight Systolic blood pressure Diastolic blood pressure Provider Name and Address Organization Details Last Updated DateTime 10/30/2023 165.1 cm 29.8 kg/m2 12356.75 g 143 mm[Hg] 75 mm[Hg] Jeanne Soriano [facility] 4 09:35:32 Social History Question Answer Notes LastModified by Organizat ion Details LastModified Time Tobacco Smoking Status Never Smoker Milly [email or web address] [facility] 10/15/2022 09:55:12 What Is Your Level Of Alcohol Consumption? None Information not available 10/15/2022 Are You Blind Or Do You Have Difficulty Seeing? No Information not available 10/11/2021 What Is Your Level Of Caffeine Consumption? Moderate Information not available 10/15/2022 In The 14 Days Before Symptom Onset, Have You Had Close Contact With A Laboratory-confir med COVID-19 While That Case Was Ill? No Information not available 10/15/2022 In The 14 Days Before Symptom Onset, Have You Had Close Contact With A Person Who Is Under Investigation For COVID-19 While That Person Was Ill? No Information not available 10/15/2022 Have You Been To An Area Known To Be High Risk For COVID-19? No Information not available 10/15/2022 Are You Deaf Or Do You Have Serious Difficulty Hearing? No Information not available 10/11/2021 What Type Of Diet Are You Following? REGULAR Information not available 10/11/2021 What Is The Highest Grade Or Level Of School You Have Completed Or The Highest Degree You Have Received? 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 No Information not available 10/15/2022 Do You Use Protection During Sex? Always Information not available 10/15/2022 Do You Use Your Seat Belt Or Car Seat Routinely? Yes Information not available 10/15/2022 Do You Have Smoke And Carbon Monoxide Detectors In Your Home? Yes Information not available 10/15/2022 How Much Tobacco Do You Smoke? No Information not available 10/15/2022 Do You Feel Stressed (tense, Restless, Nervous, Or Anxious, Or Unable To Sleep At Night)? [id number] [email or web address] Information not available 10/30/2023 Do You Use Any Illicit Or Recreational Drugs? No Information not available 10/15/2022 Do You Use Sunscreen Routinely? Yes Information not available 10/15/2022 Have You Used IV Drugs? No Information not available 10/15/2022 Sex: Unknown Functional Status Question Answer Note LastModified by Organizat ion Details LastModified Time Do you have difficulty walking or climbing stairs? No Information not available 10/15/2022 Are you able to walk? YESWOREST Information not available 10/11/2021 Are you able to care for yourself? Yes Information not available 10/15/2022 Do you have difficulty dressing or bathing? No Information not available 10/15/2022 What is your exercise level? Occasional Information not available 10/11/2021 Mental Status None recorded. Family History Relationship Description Onset Age of this Age Resolved Age Notes LastModified by Organization Details LastModified Time Brother Diabetes mellitus [email or web address] Not available 2020 12:03:19 Father Diabetes mellitus Not available 2020 12:03:25 Mother Diabetes mellitus [email or web address] Not available 2020 12:03:33 Mother Malignant tumor of kidney [email or web address] Not available 2023 09:23:25 Paternal Grandmother Diabetes mellitus Not available 2020 12:03:39 Maternal Grandfather Malignant tumor of colon [email or web address] Not available 2020 12:03:54 Medical History Condition Response Allergies (Food, seasonal, environmental ) N Other N Breast Cancer N Drug/Latex Allergies/Reactions N Blood Transfusion N Lung Disease N Dermatologic Disorders N Defects or Inherited Disease N Breast Problem N Gestational Diabetes N Hematologic disorders N Anesthesia Complications N History of STI N Deep Vein Thrombosis N Polycystic ovary syndrome N Anxiety Disorder N Autoimmune disease N Arthritis N Polyps N Infertility N History of abnormal pap N Acid Reflux (GERD) N Cancer N Varicosities N Stroke N Neurologic/Epilepsy N Endometriosis N High Cholesterol N Fibromyalgia N Headaches N Kidney Disease N Heart Problems N Kidney or Bladder Problems N Thyroid Problems N GI Problems N Eating Disorder N Anemia N Art (IVF or FET) N Psychiatric Illness N Ovarian Cancer N Diabetes N Pulmonary (TB, Asthma) N Hepatitis/Liver Disease N No Past Medical History N Eczema N Urinary Tract Infection N Abuse/Domestic Violence N Asthma N Trauma/Violence N Depression/ depression N Heart Disease N Pre-Eclampsia N Hypertension Y Osteoporosis Y Thrombophilias N Gynecological History Statement/Question Response Abnormal Pap N Date of Last Mammogram 12/16/2022 On BCP's at Conception? N STIs/STDs N HPV Vaccine N 12/16/2019 Current Control Method Menopause Age at First Child 29 Most Recent Bone Density 04/01/2023 Sexually Active? Y Age of first menstrual cycle 12 Date of Last Pap Smear 07/06/2020 Sexual Problems? N LMP Definite 11/16/2019 Obstetrics History GPAL:G 2 P 2 0 0 2 Type Value Full Term 2 Living 2 Total 2 Past Encounters Encounter ID Performer Location Encounter Start Date Encounter Closed Date Diagnosis/Indication Diagnosis SNOMED-CT Code Diagnosis ICD10 Code Diagnosis Note [id number] Qiana Cano [place] [address] [address] 07/06/2020 09:19:47 07/06/2020 09:59:19 Gynecologic examination 02192257 Z78.0 Take Calcium with Vitamin D 12-1500mg daily. Do monthly self breast exams. It is advised to get annual flu shot in the fall and she could obtain at [facility] or [facility]. If you haven't received the Tdap vaccine in the last 10 years you should obtain one as well. Have mammogram yearly, bone density every 2-3 years and colonoscop y every 5-10 years depending on findings and history.Ma mmogram in December and cologard in November. Labs yearly with pcp. Order given for bone density. Engage in daily exercise of low impact aerobic exercise 45-60 minutes 4-5 times weekly. Avoid tobacco and illicit drugs as well as using moderation with alcohol intake less than 1-2 8 oz beverages daily. This lifestyle behavior pattern will lead to less health conditions and longer life span. If BMI greater than 25 weight watchers or dietary consult advised. Questions have been answered. Patient appears to understand instructio ns, but if you have any further questions call or respond to this email. [id number] Qiana Cano [place] [address] [address] 02/12/2021 18:00:20 02/13/2021 10:58:19 Osteoporosis 76637971 M81.0 Discussed bone density and labs with patient. Offered consult with bone specialist .Talked about all medication options. Pt is aware that if she desires treatment with via injection/ infusion I would want her to see a bone specialist . They can also talk to her about po medication s. If she is sure she would like to proceed with po treatment we can treat here.Instr ucted to take vit d 50,000 once weekly x 12 weeks then 3000 daily.Will check insurance benefits to determine which po treatment is covered.Wi ll send her a portal message with medication info.Encou raged healthy diet and regular weight bearing exercise.P t to call if any questions. [id number] EMILY Goff [place] [address] [address] 10/11/2021 09:24:51 10/11/2021 10:19:02 Screening for malignant neoplasm of breast 518801753 Z12.39 Gynecologi c examination 08159402 Z01.419 Take Calcium with Vitamin D 12-1500mg daily. Do monthly self breast exams. It is advised to get annual flu shot in the fall and she could obtain at [facility] or [facility] care clinic. If you haven't received the Tdap vaccine in the last 10 years you should obtain one as well. Have mammogram yearly, bone density every 2-3 years and colonoscop y every 5-10 years depending on findings and history. Engage in daily exercise of low impact aerobic exercise 45-60 minutes 4-5 times weekly. Avoid tobacco and illicit drugs as well as using moderation with alcohol intake less than 1-2 8 oz beverages daily. This lifestyle behavior pattern will lead to less health conditions and longer life span. If BMI greater than 25 weight watchers or dietary consult advised. Questions have been answered. Patient appears to understand instructio ns, but if you have any further questions call or respond to this email WWEStarted on ibandronat e for osteoporos is management , once monthly, on 02/12/2021 Next Dexa due 01/2023No hx of abnormal papsLast pap 07/06/2020 NILM, HR HPV (-)No pap needed today per ASCCP guidelines Mammogram order given to patientShe has a cologuard stool sample kit at home, encouraged her to do thisBP today 150/74, no symptoms. She is seeing her PCP next week. I encouraged her to call her PCP and let them know what her BP was today, as she will need to f/u with them about this. Discussed to go to the ED with any chest pains, blurry vision, or headaches that do not resolve.RT C in 1 year for WWE or sooner if needed [id number] EMILY Goff [place] [address] [address] 10/15/2022 09:46:15 10/15/2022 11:11:43 Gynecologic examination 98456632 Z01.419 Take Calcium with Vitamin D 12-1500mg daily. Do monthly self breast exams. It is advised to get annual flu shot in the fall and she could obtain at [facility] or [facility] care clinic. If you haven't received the Tdap vaccine in the last 10 years you should obtain one as well. Have mammogram yearly, bone density every 2-3 years and colonoscop y every 5-10 years depending on findings and history. Engage in daily exercise of low impact aerobic exercise 45-60 minutes 4-5 times weekly. Avoid tobacco and illicit drugs as well as using moderation with alcohol intake less than 1-2 8 oz beverages daily. This lifestyle behavior pattern will lead to less health conditions and longer life span. If BMI greater than 25 weight watchers or dietary consult advised. Questions have been answered. Patient appears to understand instructio ns, but if you have any further questions call or respond to this email Brian freeman updated todaylast dexa 10/2020 - on ibandronat e since 02/2021. Will update dexa and then reach out to patient with further recommenda tions regarding medication course.col on ca screening UTD - PCPmammogr am order given - due 12/2022UTD with PCPRTC in 1 year or sooner if needed Screening for malignant neoplasm of breast 810804968 Z12.39 Screening for osteoporosis 578010954 Z13.820 Osteoporosis 89583159 M8 1.0 [id number] TANIA FOSS MD [place] [address] [address] 10/30/2023 09:18:02 10/30/2023 10:16:16 Screening mammography 75126934 Z12.31 Gynecologi c examination 33004117 Z01.419 [facility]- Cervical cancer screening: Pap smear not indicated obtained today, will follow up on the results with the patient as they become available; discussed given age, no need for continued pap smears unless patient desires- Breast cancer screening: mammogram ordered- HPV immunizati on: does not qualify- STD testing: declined- hereditary cancer screening: does not qualify for testing Health Concerns Section Related Observation LastModified by Organization Detai ls LastModified Time None Recorded Concern Status LastModified by Organization Details LastModified Time None Recorded Advance Directives Directive None Recorded Payers Encounter Date Sequence Insurance Name Policy Number Policy Floyd Covered Member ID Floyd Member ID Guarantor Name 07/06/2020 2 [employer] [id number] Timi Jurado [id number] Stephie K Jurado 07/06/2020 1 [facility] [id number] Bhumika K Jurado [id number] Stephie K Jurado 02/12/2021 2 [employer] [id number] Timi Jurado [id number] Stephie K Jurado 02/12/2021 1 [facility] [id number] Bhumika K Jurado [id number] Stephie K Jurado 10/11/2021 2 [employer] [id number] Timi Jurado [id number] Stephie K Jurado 10/11/2021 1 [facility] [id number] Bhumika K Jurado [id number] Stephie K Jurado 10/15/2022 1 [employer] [id number] Bhumika K Jurado [id number] Stephie K Jurado 10/15/2022 2 [facility] [id number] Stephie Jurado [id number] Stephie K Jurado 10/30/2023 1 [employer] [id number] Stephie K Jurado [id number] Stephie K Jurado 10/30/2023 2 [facility] [id number] Stephie Jurado [id number] Stephie K Jurado Notes Date Note Type Note Provider Name and Address Organization Details Recorded Time 07/06/2020 text/html Annual GYNReport ed bypatient.Menstrua l cycle:Menopausal Urinary symptoms:No hematuria; No incontinence Vulva:No genital lesion Vagina:Normal vaginal discharge Breast:No breast pain; No breast lump; No nipple discharge Sexual complaints:No sexual complaints; No pain during intercourse; Normal libido Menopausal Symptoms:No menopausal symptoms; Normal vaginal lubrication Psychological symptoms:No depression; No anxiety; No PMDD Qiana Cano nik [facility] 07/06/2020 09:55:34 10/11/2021 text/html Annual Picker Feeder Post-MenopausalRep orted bypatient.Menopaus al Symptoms:no menopausal symptoms; normal vaginal lubrication Vaginal Bleeding:history of menopause having occurred; no history of post menopausal bleeding Urinary Symptoms:no hematuria; no incontinence; no nocturia; no urinary frequency Vulva:no genital lesion; no vulvar atrophy Vagina:normal vaginal discharge; no vaginal atrophy Breast:no breast lump; no nipple discharge; no breast pain Sexual Complaints:no sexual complaints Psychological Symptoms:no depression; no anxiety Preventive Measures:encourage regular mammograms starting age 40; encourage self breast examination; encourage regular exercise; encourage no tobacco use; needs to schedule mammogram EMILY Goff [address], [place], [address], [facility] 10/11/2021 10:18:42 10/15/2022 text/html Annual Picker Feeder Post-MenopausalRep orted bypatient.Menopaus al Symptoms:no menopausal symptoms; normal vaginal lubrication Vaginal Bleeding:history of menopause having occurred; no history of post menopausal bleeding Urinary Symptoms:no hematuria; no incontinence; no nocturia; no urinary frequency Vulva:no genital lesion; no vulvar atrophy Vagina:normal vaginal discharge; no vaginal atrophy Breast:no breast lump; no nipple discharge; no breast pain Sexual Complaints:no sexual complaints Psychological Symptoms:no depression; no anxiety Preventive Measures:encourage regular mammograms starting age 40; encourage self breast examination; encourage regular exercise; encourage no tobacco use; mammogram performed within the past year; needs to schedule bone density EMILY Goff [address], [place], [address], [facility] 10/15/2022 10:15:56 10/30/2023 text/html Presents today f or her annual well-woman exam. Denies abnormal vaginal discharge. She is sexually active and denies dyspareunia. She has not noticed any changes or masses in her breasts. Last mammo 01/2023, [facility] 1. Postmenopausal, no PMB. Hx of osteoporosis, on ibandronate since 2020. Last DEXA 2022, stable from prior DEXA 2020. No issues with taking ibandronate. Follows with endocrinology. Having some hip pain in the AM, but resolves with movement. TANIA FOSS MD [address], [place], [address], [facility] 10/30/2023 10:09:48 OBGyn Episode Ob Episode Information Episode Created Date Number of Fetuses Patient Bloodtype Patient rh Status Prepregnancy Weight lbs Domestic Partner Domestic Partner Phone Father Name Cdl Instructor Status 07/06/19 21 1 CLOSED Fetus Data First Name Last Name Admitted to NICU Weight (g) Sex Living Outcome Pediatric Complications Fetus ID Race Codes Race Delivery Type F 93 Vaginal Delivery Stu Calculation Initial Stu Date Initial Exam Date Initial Exam Provider Initial Ultrasound Date Last Menstrual Period Date Ultra Sound Weeks Gestation 0 Eighteen To Twenty Week Stu Update Ultra Sound Date Fundal Height At Umbil Quickening Date Ultra Sound Latest Weeks Gestation Final Stu Confirmed By Final Stu Confirmed Date Final Stu Date Ultra Sound Latest Days Gestation 0 0 Menstrual History Last Menstrual Date Menses Monthly On Bcp Conception Prior Menses Frequency Hcg Plus Date Menarche Onset Age Delivery Information Delivery Date Delivery Type Labor Anesthesia Weeks Gestation Incision Type Labor Labor Length Hrs Delivered By Post Complications Tubal Sterilization Discharge Date Comments 0 Discharge Information Feeding Method Contraceptive Method Maternal HG B and HCT Levels Ob Episode Information Episode Created Date Number of Fetuses Patient Bloodtype Patient rh Status Prepregnancy Weight lbs Domestic Partner Domestic Partner Phone Father Name Cdl Instructor Status 07/06/19 21 1 CLOSED Fetus Data First Name Last Name Admitted to NICU Weight (g) Sex Living Outcome Pediatric Complications Fetus ID Race Codes Race Delivery Type F [id number] Vaginal Delivery Stu Calculation Initial Stu Date Initial Exam Date Initial Exam Provider Initial Ultrasound Date Last Menstrual Period Date Ultra Sound Weeks Gestation 0 Eighteen To Twenty Week Stu Update Ultra Sound Date Fundal Height At Umbil Quickening Date Ultra Sound Latest Weeks Gestation Final Stu Confirmed By Final Stu Confirmed Date Final Stu Date Ultra Sound Latest Days Gestation 0 0 Menstrual History Last Menstrual Date Menses Monthly On Bcp Conception Prior Menses Frequency Hcg Plus Date Menarche Onset Age Delivery Information Delivery Date Delivery Type Labor Anesthesia Weeks Gestation Incision Type Labor Labor Length Hrs Delivered By Post Complications Tubal Sterilization Discharge Date Comments 1 Discharge Information Feeding Method Contraceptive Method Maternal HG B and HCT Levels
--- OUTSIDE RECORDS SUMMARY | 2024-06-02 14:26 | XMS_ITS | Referral Summary ---
Author Organization [facility] [address] Address [address] [place] [address] Care Team Providers Care Reservations And Ticketing Agent Name Role Phone Mt Bartlett MD Primary Care Provider Allergies No known active allergies Social History Tobacco Use Types Packs/Day Years Used Date Smoking Tobacco: Never Assessed Personal Safety Answer Date Recorded Getting School Help Needed Not on file 05/31 Comments Unknown Sex and Gender Information Value Date Recorded Sex Assigned at Not on file Legal Sex Female 9:35 AM CDT Gender Identity Female 06/03/2022 8:42 AM CDT Sexual Orientation Straight 06/03/2022 8: 42 AM CDT Last Filed Vital Signs Vital Sign Reading Time Taken Comments Blood Pressure 181/91 07/04/2022 3:40 PM CDT Pulse - - Temperature - - Respiratory Rate - - Oxygen Saturation - - Inhaled Oxygen Concentration - - Weight - - Height - - Body Mass Index - - Plan of Treatment Not on file Insurance [employer] Care Teams Reservations And Ticketing Agent Relationship Specialty Start Date End Date Mt Bartlett MD [address] [facility] [address] [place] [address] PCP - General Family Medicine 05/30/22
--- OUTSIDE RECORDS SUMMARY | 2024-06-02 14:26 | XMS_ITS | Clinical Summary ---
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 Gender Identity Not on file Sexual Orientation Not on file Plan of Treatment Health Maintenance Due Date Last Done Comments DEXA Bone Density 1958 Hepatitis C Virus (HCV) Screening 1960 TdaP Immunization 1958 Pap Smear 11/01/1979 Cervical Cancer Screening (CCS) 1988 HPV/Cotest 1988 Colonoscopy 11/01/2003 Colorectal Cancer Screening 11/01/2003 Cologuard 2008 Immunochemical Fecal Occult Blood 2008 Mammogram 2008 Pneumococcal Immunization (5 0+ years) (1 of 1 - PCV) 2008 Zoster Immunization (1 of 2) 2008 Influenza Immunization (#1) 2023 SARS-COV-2 Immunization (2023- season) 2023 Respiratory Syncytial Virus (RSV) Immunization (Adult) (1 - 1-dose 75+ series) 2033 Hepatitis B Immunization Aged Out No longer eligible based on patient's age to complete this topic Meningococcal Immunization (ACWY) Aged Out No longer eligible based on patient's age to complete this topic Pneumococcal Immunization Combined Aged Out No longer eligible based on patient's age to complete this topic Rotavirus Immunization Aged Out No lo nger eligible based on patient's age to complete this topic
--- OUTSIDE RECORDS SUMMARY | 2024-06-02 14:26 | XMS_ITS | Clinical Summary ---
Author Organization [facility] [employer] Address [address] [address] Care Team Providers Care Nursing Program Director Name Role Phone Mt Bartlett MD Primary Care Provider [phone] Source Comments [facility] [employer],non-owned Affiliates and Associated Physician Practices is amultiple site organization consisting of ambulatory clinics and hospital sitesin [place], [place], [place] and [place]. This disclosure is being madepursuant to the Care Everywhere program and may not contain all information available regarding this patient. Last updated 17.[facility] [employer] Allergies No known active allergies Medications * Be aware that medications may not be up to date on this document. Alwaysverify current medications with the patient. Medication Sig Dispensed Refills Start Date End Date Status methylPREDNISolone (MEDROL DOSEPAK) 4 MG tablet as directed. 1 Packet 0 07/09/2013 Active Active Problems No known active problems Social History Tobacco Use Types Packs/Day Years Used Date Smoking Tobacco: Never Alcohol Use Standard Drinks/Week Comments No 0 (1 standard drink = 0.6 oz pur e alcohol) Sex and Gender Information Value Date Recorded Sex Assigned at Not on file Gender Identity Not on file Sexual Orientation Not on file Last Filed Vital Signs Vital Sign Reading Time Taken Comments Blood Pressure 152/86 07/09/2013 2:54 PM CDT Pulse 81 07/09/2013 2:54 PM CDT Temperature 37.2 C (99 F) 07/09/2013 2:54 PM CDT Respiratory Rate 16 07/09/2013 2:54 PM CDT Oxygen Saturation 99% 07/09/2013 2:54 PM CDT Inhaled Oxygen Concentration - - Weight 68.5 kg (151 lb) 07/09/2013 2:54 PM CDT Height 157.5 cm (5' 2 ) 07/09/2013 2:54 PM CDT Body Mass Index 27.62 07/09/2013 2:54 PM CDT Plan of Treatment Health Maintenance Due Date Last Done Comments BONE DENSITY TESTING 1960 COLOGUARD (AGES 45-75) - COL ON CA SCREENING 1958 COLON MONITORING 1958 COLONOSCOPY - COLON CA SCREENING 1958 CT COLONOGRAPHY - COLON CA SCREENING 1960 Colorectal Cancer Screening 1960 FIT - COLON CA SCREENING 1958 FLEX SIG - COLON CA SCREENING 1960 MAMMOGRAM 1960 PAP SMEAR 1958 HIV SCREENING 1973 DTAP/TDAP/TD VACCINES (1 - Tdap) 1977 PNEUMOCOCCAL VACCINE 50+ (1 of 1 - PCV) 2008 ZOSTER VACCINE (1 of 2) 2008 LIPID TESTING 11/03/2022 11/03/2017 COVID-19 VACCINE (1 - 2023-2 5 season) 2023 INFLUENZA VACCINE (#1) 2023 DEPRESSION SCREENING 03/17/2024 Respiratory Syncytial Virus (RSV) Vaccine Pt: or over 60 yrs (1 - 1-dose 75+ series) 2033 HEPATITIS C SCREENING Completed 11/03/2017 HEPATITIS B VACCINE Aged Out No longe r eligible based on patient's age to complete this topic HIB VACCINE Aged Out No longer eligi ble based on patient's age to complete this topic HPV VACCINE Aged Out No longer eligi ble based on patient's age to complete this topic MENINGOCOCCAL (Group B) VACC INE SHARED DECISION-MAKING Aged Out No longer eligibl e based on patient's age to complete this topic MENINGOCOCCAL GROUPS A/C/Y/W VACCINE Aged Out No longer eligible b ased on patient's age to complete this topic Procedures Procedure Name Priority Date/Time Associated Diagnosis Comments LIPID PROFILE Routine 11/03/2017 8:29 AM CDT Routine general medical examination at a health care facility Impaired fasting glucose HEPATITIS C ANTIBODY Routine 11/03/2017 8:29 AM CDT Routine general medical examination at a health care facility Impaired fasting glucose from Last 3 Months or Most Recently Relevant to Health Maintenance Results * HEPATITIS C ANTIBODY (11/03/2017 8:29 AM CDT) HCV Antibody Screen Non Reactive Non Reactive 11/03/2017 9:41 AM CDT [facility] HCV S/C Ratio 0.06 0.00 - 0.79 11/03/2017 9:41 AM CDT [facility] Comment: Hbqesx-eu-aoqarx ratio (S/CO) <0.80: Non Reactive Blood BLOOD SPECIMEN / Unknown Lab Venipuncture / Unknown 11/03/2017 8:29 AM CDT 11/03/2017 8:29 AM CDT Narrative [facility] - 11/03/2017 9:41 AM CDT Non Reactive - Antibodies to Hepatitis C virus (HCV) were not detected, result does not exclude early acute HCV infection. Mt Bartlett MD LAB - CHEMISTRY RICKEY APPIAH [facility] Organization Address City/State/[facility] Co de Phone Number [facility] [address] [place] [address] * LIPID PROFILE (11/03/2017 8:29 AM CDT) Pathologist [facility] Cholesterol 138 <200 mg/dL 11/03/2017 9:05 AM CDT [facility] Triglycerides 61 <150 mg/dL 11/03/2017 9:05 AM CDT [facility] HDL Cholesterol 50 >40 mg/dL 8 9:05 AM CDT [facility] LDL Calculated 76 <130 mg/dL 11/03/2017 9:05 AM CDT [facility] VLDL Calculated 12 <=30 mg/dL 8 9:05 AM CDT [facility] Chol HDL Ratio 2.8 <4.5 11/03/2017 9:05 AM CDT [facility] LDL/HDL Ratio 1.5 <5.0 11/03/2017 9:05 AM CDT [facility] Blood BLOOD SPECIMEN / Unknown Lab Venipuncture / Unknown 11/03/2017 8:29 AM CDT 11/03/2017 8:29 AM CDT Mt Bartlett MD LAB - CHEMISTRY RICKEY APPIAH [facility] Organization Address City/State/ZIP Co de Phone Number [facility] [address] [place] [address] from Last 3 Months or Most Recently Relevant to Health Maintenance Care Teams Nursing Program Director Relationship Specialty Start Date End Date Mt Bartlett MD [address] [place] [address] PCP - General Family Medicine 11/03/17
--- OUTSIDE RECORDS SUMMARY | 2024-06-02 14:26 | XMS_ITS | Clinical Summary ---
Author Organization [facility] [address] Address [address] [place] [address] Care Team Providers Care Microstrategy Bi Developer Name Role Phone Mt Barteltt MD Primary Care Provider Allergies No known [...] Mass Index - - Plan of Treatment Health Maintenance Due Date Last Done Comments Breast Cancer Screening-Mammogram 1960 Cervical Cancer Screening 1958 Colon Cancer Screening-Colonoscopy 1958 Depression Screening 1958 Fall Risk Assessment 1958 Hepatitis C Screening 1958 Osteoporosis Screening-Bone Density Scan 1958 DTaP/Tdap/Td Vaccine (1 - Tdap) 1969 Hepatitis B Screening 1976 Pneumococcal vaccine 65+ (1 of 1 - PCV) 2008 Zoster Vaccine (1 of 2) 2008 Well Visit 65+ 11/01/2023 Covid-19 Vaccine (2023- season) 11/16/202308/2021, 05/28/2020 Influenza Vaccine (#1) 2023 01/17/2021, 2019 Insurance [employer] Care Teams Microstrategy Bi Developer Relationship Specialty Start Date End Date Mt Bartlett MD [address] [place] [address] PCP - General Family Medicine 05/30/22
== END 2024-06-02 13:02 | disposition home or self-care (01) ==
LOC: ANHIMG 13:02
PROVIDERS: PCP Family Medicine; Visit Provider Internal Medicine
DX: E05.90 Thyrotoxicosis, unspecified without thyrotoxic crisis or storm (principal); R73.03 Prediabetes; M81.0 Age-related osteoporosis without current pathological fracture; R74.8 Abnormal levels of other serum enzymes
CPT/HCPCS: 10005; 88172; 88173; 88305

== ENCOUNTER 2024-09-09 09:32 | Outpatient (CLI) | payer BC, MEDICARE, SELFPAY ==
[2024-09-09 10:25] LABS: Alanine Aminotransferase 60 U/L (6-35); Alkaline Phosphatase 87 U/L (38-126); Anion Gap 8 mmol/L (4-12); Aspartate Amino Transferase 49 U/L (14-36); Bilirubin,Total 0.4 mg/dL (0.2-1.3); Blood Urea Nitrogen 14 mg/dL (7-17); Calcium 10.6 mg/dL (8.4-10.2); Carbon Dioxide 28 mmol/L (22-30); Chloride 104 mmol/L (98-107); Estimated Glomerular Filt Rate > 60; Glucose 86 mg/dL (65-110); Potassium 3.8 mmol/L (3.4-5.0); Sodium 140 mmol/L (137-145); Total Protein 7.4 g/dL (6.3-8.2)
[2024-09-09 10:37] LABS: Hemoglobin A1C 6.2 % (<5.7)
== END 2024-09-09 09:33 | disposition home or self-care (01) ==
PROVIDERS: PCP Family Medicine; Visit Provider Family Medicine
DX: R73.03 Prediabetes (principal); I10 Essential (primary) hypertension; E05.90 Thyrotoxicosis, unspecified without thyrotoxic crisis or storm
CPT/HCPCS: 36415; 80053; 83036

== ENCOUNTER 2024-10-04 09:16 | Outpatient (CLI) | payer BC, MEDICARE, SELFPAY ==
--- NOTE | ~2024-10-04 | US_ITS ---
EXAMINATION: US thyroid DATE: 10/04/2024 09:39 INDICATION: Thyrotoxicosis TECHNIQUE: Multiple ultrasound images of the thyroid were obtained. COMPARISON: 07/09/2023 FINDINGS: The right thyroid lobe measures 8.0 x 4.6 x 2.1 cm. The left thyroid lobe measures 5.1 x 1.4 x 1.4 c m. 5.8 centimeters solid wider than tall isoechoic nodule with ill-defined margins and without echog enic foci (TI-RADS 3, mildly suspicious , FNA if >=2.5 cm, annual followup is >=1.5 cm). 1.4 cm wider than tall solid hypoechoic nodule with ill-defined margins and without echogenic foci in the inferio r left thyroid lobe (TI-RADS 4, moderately suspicious , FNA if >=1.5 cm, annual followup is >=1 cm). Both nodules are without significant interval change since the intervening biopsy performed on and 06/02/2024, both of which were consistent with benign follicular nodule. IMPRESSION: 1. No interval change in a couple thyroid nodules with previous benign biopsies. Reviewed, dictated and finalized at location A. IMPRESSION: 1. No interval change in a couple thyroid nodules with previous benign biopsies .
== END 2024-10-04 09:17 | disposition home or self-care (01) ==
LOC: MICIMG 09:17
PROVIDERS: PCP Family Medicine; Visit Provider Internal Medicine
DX: E05.90 Thyrotoxicosis, unspecified without thyrotoxic crisis or storm (principal); E04.2 Nontoxic multinodular goiter
CPT/HCPCS: 76536

== ENCOUNTER 2025-03-14 11:47 | Outpatient (CLI) | payer MEDICARE, BC, SELFPAY ==
--- NOTE | ~2025-03-14 | MM_ITS ---
EXAMINATION: MM screening liborio BI w ivy HISTORY: Screening. TECHNIQUE: Craniocaudal and mediolateral oblique 3-D tomosynthesis images were obtained and synthetic 2-D images were generated. CAD analysis was submitted and interpreted. COMPARISON: 2023, 2022, and 2021 BREAST PARENCHYMAL COMPOSITION: Dense: The breasts are heterogeneously dense, which may obscure small masses. FINDINGS: No suspicious masses are seen. There are no suspicious calcifications. No unexplained architectural distortion is seen. There are no skin or nipple abnormalities identified. There is no adenopathy seen on the images submitted. IMPRESSION: No mammographic evidence to suggest malignancy is seen. The patient may return to screening mammography as per ACR guidelines. BI-RADS 1 - Negative. Reviewed, dictated and finalized at location C. LE BACK OPERATOR
--- NOTE | ~2025-03-14 | DEXA_ITS ---
Bone Density Report Name: GWEN HARRIS Age: 64 Sex: Female Ethnicity: White Date of : 1960 Indication: postmenopausal; screening for osteoporosis; Referring Provider: JOEL SANTOS Study: Bone densitometry was performed. Exam Date: March 14, 2025 Accession number: [id number] Bone Density: Region BMD T-score Z-score Classification AP Spine(L1-L4) 0.892 -1.4 0.4 Osteopenia Femoral Neck (Left) 0.551 -2.7 -1.1 Osteoporosis Total Hip (Left) 0.793 -1.2 0.1 Osteopenia Femoral Neck (Right) 0.546 -2.7 -1.1 Osteoporosis Total Hip (Right) 0.772 -1.4 -0.1 Osteopenia Femoral Neck Mean 0.548 -2.7 -1.1 Osteoporosis Total Hip Mean 0.782 -1.3 0.0 Osteopenia World Health Organization criteria for BMD impression classify patients as: Normal (T-score at or above -1.0), Osteopenia (T-score between -1.0 and -2.5), or Osteoporosis (T-score at or below -2.5). Clinical Information Provided by Patient: Is being treated for osteoporosis Has used the following medications: Boniva (i.e. ibandronate), Calcium, multivitamin Patient maximum height was 62 Menopause Age: 51 No regular weight bearing exercise Drinks caffeinated beverages Onset of menses at age 12 Number of children 2 Impression: The patient has osteoporosis, based on the Left Femoral Neck T-score. Discussion: It is important to ask patients whether they are taking their medications and to encourage continued and appropriate compliance with their osteoporosis therapies to reduce fracture risk. It is also important to review their risk factors and encourage appropriate calcium and vitamin D intakes, exercise, fall prevention and other lifestyle measures. Follow-Up: Consider a repeat BMD and Vertebral Fracture Assessment (VFA) exam in 2 years or sooner if medically necessary, to reassess this patient's status. Reported by: EJ on 03/14/2025 12:36:00 PM. Reviewed, dictated and finalized at location A.
--- OUTSIDE RECORDS SUMMARY | 2025-03-14 12:24 | XMS_ITS | Clinical Summary ---
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 Gender Identity Not on file Sexual Orientation Not on file Plan of Treatment Health Maintenance Due Date Last Done Comments Hepatitis C Virus (HCV) Screening 1960 TdaP Immunization 1958 Cologuard 11/01/2003 Colonoscopy 11/01/2003 Colorectal Cancer Screening 11/01/2003 Immunochemical Fecal Occult Blood 11/01/2003 Pneumococcal Immunization (5 0+ years) (1 of 1 - PCV) 2008 Zoster Immunization (1 of 2) 2008 Influenza Immunization (#1) 2024 SARS-COV-2 Immunization ( - 2023- season) 2024 Respiratory Syncytial Virus (RSV) Immunization (Adult) (1 - 1-dose 75+ series) 2033 Hepatitis B Immunization Aged Out No longer eligible based on patient's age to complete this topic Human Papillomavirus (HPV) Immunization Aged Out No longer eligible b ased on patient's age to complete this topic Meningococcal Immunization (ACWY) Aged Out No longer eligible based on patient's age to complete this topic Rotavirus Immunization Aged Out No lo nger eligible based on patient's age to complete this topic
--- OUTSIDE RECORDS SUMMARY | 2025-03-14 12:24 | XMS_ITS | Clinical Summary ---
Author Organization [facility] [address] Address [address] [place] [address] Care Team Providers Care Mill Tender Name Role Phone Mt Bartlett MD Primary [...] Not on file Insurance [employer] Care Teams Mill Tender Relationship Specialty Start Date End Date tM Bartlett MD [address] [facility] [address] [place] [address] PCP - General Family Medicine 05/30/22
--- OUTSIDE RECORDS SUMMARY | 2025-03-14 12:24 | XMS_ITS | Clinical Summary ---
Author Organization [facility] [employer] Address [address] [place] [address] Care Team Providers Care Manager Sourcing Name Role Phone Mt Bartlett MD Primary Care Provider [phone] Source Comments [facility] [employer],non-owned Affiliates and Associated Physician Practices is amultiple site organization consisting of ambulatory clinics and hospital sitesin [place], [place], [place] and [place]. This disclosure is being madepursuant to the Care Everywhere program and may not contain all information available regarding this patient. Last updated 17.[facility] [employer] Allergies No known active allergies Medications * Be aware that medications may not be up to date on this document. Alwaysverify current medications with the patient. methylPREDNISolo ne (MEDROL DOSEPAK) 4 MG tablet as directed. 1 Packet 0 07/09/2013 Active Active Problems No known active problems Social History Tobacco Use Types Packs/Day Years Used Date Smoking Tobacco: Never Alcohol Use Standard Drinks/Week Comments No 0 (1 standard drink = 0.6 oz pur e alcohol) Comments No Sex and Gender Information Value Date Recorded Sex Assigned at Not on file Legal Sex Female 2:42 PM CDT Gender Identity Not on file Sexual Orientation [...] 2:54 PM CDT Height 157.5 cm (5' 2) 07/09/2013 2:54 PM CDT Body Mass Index [...] - COLON CA SCREENING 1958 MAMMOGRAM 1958 DTAP/TDAP/TD VACCINES (1 - Tdap) 1977 PNEUMOCOCCAL VACCINE 50+ (1 of 1 - PCV) 2008 ZOSTER VACCINE (1 of 2) 2008 LIPID TESTING 11/03/2022 11/03/2017 DEPRESSION SCREENING 03/17/2024 COVID-19 VACCINE (1 - 2024-2 6 season) 2024 INFLUENZA VACCINE (#1) 2024 Respiratory Syncytial Virus (RSV) Vaccine Pt: or [...] HEPATITIS C ANTIBODY (11/03/2017 8:29 AM CDT) [facility] HCV Antibody Screen Non Reactive Non Reactive 11/03/2017 9:41 AM CDT [facility] HCV S/C Ratio 0.06 0.00 - 0.79 11/03/2017 9:41 AM CDT [facility] Comment: Quxgqx-mm-boslzm ratio (S/CO) <0.80: Non Reactive Blood BLOOD SPECIMEN / Unknown Lab Venipuncture / Unknown 11/03/2017 8:29 AM CDT 11/03/2017 8:29 AM CDT [facility] - 11/03/2017 9:41 AM CDT Non Reactive - Antibodies to Hepatitis C virus (HCV) were not detected, result does not exclude early acute HCV infection. Mt Bartlett MD LAB - CHEMISTRY ORDERABLES [facility] Result [facility] [address] [place] [address] * LIPID PROFILE (11/03/2017 8:29 AM CDT) [facility] Cholesterol 138 <200 mg/dL 11/03/2017 9:05 AM CDT [facility] Triglycerides 61 <150 mg/dL 11/03/2017 9:05 AM CDT [facility] HDL Cholesterol 50 >40 mg/dL 8 9:05 AM CDT [facility] LDL Calculated 76 <130 mg/dL 11/03/2017 9:05 AM CDT [facility] VLDL Calculated 12 <=30 mg/dL 8 9:05 AM CDT [facility] Chol HDL Ratio 2.8 <4.5 11/03/2017 9:05 AM CDT [facility] LDL/HDL Ratio 1.5 <5.0 11/03/2017 9:05 AM CDT [facility] Blood BLOOD SPECIMEN / Unknown Lab Venipuncture / Unknown 11/03/2017 8:29 AM CDT 11/03/2017 8:29 AM CDT Mt Bartlett MD LAB - CHEMISTRY ORDERABLES [facility] Result [facility] [address] [place] [address] from Last 3 Months or Most Recently Relevant to Health Maintenance Insurance [employer] Member Subscriber Plan / Payer (Ef fective 2013-Present) Name:Bhumika Jurado Relation to Subscriber:Spouse Name:TIMI JURADO Date of :1962 (Home) Address: [address] [place] [address] Payer ID:Not on file Type:O Address: [address] Care Teams Manager Sourcing Relationship Specialty Start Date End Date Mt Bartlett MD [address] [place] [address] PCP - General Family Medicine 11/03/17
== END 2025-03-14 11:48 | disposition home or self-care (01) ==
PROVIDERS: PCP Family Medicine; Visit Provider Physician Assistant
DX: Z12.31 Encounter for screening mammogram for malignant neoplasm of breast (principal); Z78.0 Asymptomatic menopausal state; M85.89 Other specified disorders of bone density and structure, multiple sites; M81.0 Age-related osteoporosis without current pathological fracture
CPT/HCPCS: 77063; 77067; 77080